=== PATIENT | male | born 1960 | race Caucasian/White ===

== ENCOUNTER 2017-10-02 19:45 | Inpatient (IN) | payer MEDICARE, MEDICAID ==
--- NOTE | 2017-10-02 20:24 | ED ---
Psych HPI - General Chief Complaint: Psychiatric Symptoms Stated Complaint: suicidal Time Seen by Provider: 10/02/17 19:49 Source: patient, police, RN notes reviewed Mode of arrival: ambulatory Limitations: no limitations - History of Present Illness Initial Comments: 57-year-old male presents emergency Department with [place] [employer] for psychiatric evaluation. Patient states he has ongoing psychiatric problems and states that it's not being treated right. Patient states that she is. Appointment with psychiatrist tomorrow. Patient does drink alcohol on a regular basis denies any illicit drug use. Patient states he was on the crisis hotline tonight and stated he was suicidal. Patient states he does not want talked her he was here does not want to give any further information. - Related Data Home Medications Medication Instructions Recorded Confirmed No Known Home Medications [No 10/02/17 10/02/17 Known Home Medications] Allergies Allergy/AdvReac Type Severity Reaction Status Date / Time No Known Allergies Allergy Verified 10/02/17 20:33 Review of Systems ROS Statement: Those systems with pertinent positive or pertinent negative responses have been documented in the HPI. ROS Other: All systems not noted in ROS Statement are negative. 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 hIV, Acute arterial thrombosis requiring thrombectomy History of Any Multi-Drug Resistant Organisms: None Reported Past Surgical History: Hernia Repair Additional Past Surgical History / Comment(s): RT INGUINAL HERNIA, UMBILICAL HERNIA FEM POP BYPASS Past Anesthesia/Blood Transfusion Reactions: Blood Transfusion Reaction Additional Past Anesthesia/Blood Transfusion Reaction / Comment(s): PT CONTRACTED HIV FROM BLOOD TRANSFUSION 1976 Past Psychological History: Anxiety, Depression, PTSD Smoking Status: Current every day smoker Past Alcohol Use History: Rare Past Drug Use History: Marijuana General Exam Limitations: no limitations General appearance: alert, in no apparent distress Head exam: Present: atraumatic, normocephalic, normal inspection Eye exam: Present: normal appearance, PERRL, EOMI. Absent: scleral icterus, conjunctival injection, periorbital swelling ENT exam: Present: mucous membranes moist, TM's normal bilaterally. Absent: normal oropharynx (Edentulous) Neck exam: Present: normal inspection, full ROM. Absent: tenderness, meningismus, lymphadenopathy Respiratory exam: Present: normal lung sounds bilaterally. Absent: respiratory distress, wheezes, rales, rhonchi, stridor Cardiovascular Exam: Present: regular rate, normal rhythm, normal heart sounds. Absent: systolic murmur, diastolic murmur, rubs, gallop, clicks Neurological exam: Present: alert, oriented X3, CN II-XII intact Psychiatric exam: Present: flat affect Skin exam: Present: warm, dry, intact, normal color. Absent: rash Course Vital Signs 10/02/17 19:51 Temperature 98.2 F Pulse Rate 74 Respiratory 18 Rate Blood Pressure 119/82 O2 Sat by Pulse 98 Oximetry Disposition Clinical Impression: Psychosis, Suicidal ideation, Depression Disposition: ADMITTED IP TO THIS HOSP Condition: Stable Referrals: Marvin Amaya MD [Primary Care Provider] - 1-2 days
[2017-10-02] MEDS ORDERED: LORazepam 1 MG TAB PO STA (23:11)
[2017-10-03 00:44] LABS: Amphetamine Screen,Urine Not Detected (NotDetected); Barbiturate Screen,Urine Not Detected (NotDetected); Benzodiazepines Screen,Urine Not Detected (NotDetected); Cocaine Screen,Urine Not Detected (NotDetected); Methadone Screen, Urine Not Detected (NotDetected); Opiate Screen,Urine Not Detected (NotDetected); Oxycodone Screen, Urine Not Detected (NotDetected); Phencyclidine Screen,Urine Not Detected (NotDetected); Tricyclic Antidepressant,Urine Not Detected (NotDetected); Urn Cannabinoid Scrn Detected (NotDetected)
[2017-10-03] MEDS ORDERED: ACETAMINOPHEN TAB 325 MG TAB PO PRN (02:11)
[2017-10-03] MEDS ORDERED: LORazepam 1 MG TAB PO PRN (02:11)
[2017-10-03] MEDS ORDERED: ZIPRASIDONE 20 MG VIAL IM PRN (02:11)
[2017-10-03] MEDS ORDERED: MAG HYDROX/AL HYDROX/SIMETH 30 ML CUP PO PRN (02:11)
[2017-10-03] MEDS ORDERED: OLANZapine 10 MG TAB PO PRN (02:36)
[2017-10-03 03:14] VITALS: BMI 19.4
[2017-10-03] MEDS: NICOTINE 14MG/24HR PATCH TRANSDERM SCH ×2 (09:54→16:27)
--- NOTE | 2017-10-03 15:05 | P.HP ---
Psychiatric H&P - . History & Physical: Allergies Allergy/AdvReac Type Severity Reaction Status Date / Time No Known Allergies Allergy Verified 10/03/17 02:59 Vital Signs Temp 97.8 F 10/03/17 03:06 Pulse 93 10/03/17 03:06 Resp 16 10/03/17 03:06 BP 119/82 10/02/17 19:51 Pulse Ox 98 10/02/17 19:51 Intake & Output 10/02/17 10/03/17 10/03/17 18:59 06:59 18:59 Weight 61.5 kg 61.5 kg Laboratory Last Values Urine Opiates Screen Not Detected (NotDetected) 10/03/17 00:20 Ur Oxycodone Screen Not Detected (NotDetected) 10/03/17 00:20 Urine Methadone Screen Not Detected (NotDetected) 10/03/17 00:20 Ur Propoxyphene Screen Not Detected (NotDetected) 10/03/17 00:20 Ur Barbiturates Screen Not Detected (NotDetected) 10/03/17 00:20 U Tricyclic Antidepress Not Detected (NotDetected) 10/03/17 00:20 Ur Phencyclidine Scrn Not Detected (NotDetected) 10/03/17 00:20 Ur Amphetamines Screen Not Detected (NotDetected) 10/03/17 00:20 U Methamphetamines Scrn Not Detected (NotDetected) 10/03/17 00:20 U Benzodiazepines Scrn Not Detected (NotDetected) 10/03/17 00:20 Urine Cocaine Screen Not Detected (NotDetected) 10/03/17 00:20 U Marijuana (THC) Screen Detected (NotDetected) H 10/03/17 00:20 Identifying Information: Mr.Ronald Oshea is 57 year-old unemployed, male, lives by himself with a service animal "cat", with past psychiatric history of PTSD and severe depression. CC: "I don't know why I am here" History of Present Illness: The patient was not very good historian, and he answered many questions by "I don't remember "and he claimed that he had very poor memory due to prior strokes. According to the ED evaluation: "57-year-old male presents emergency Department with [place] police for psychiatric evaluation. Patient states he has ongoing psychiatric problems and states that it's not being treated right. Patient states that he as an anointment with psychiatrist tomorrow. Patient does drink alcohol on a regular basis denies any illicit drug use. Patient states he was on the crisis hotline tonight and stated he was suicidal. Patient states he does not want talked her he was here does not want to give any further information. " Based on evaluation today: The patient presented with some paranoid features and paranoid though. He was very frustrated and angry at the medical care under services he receives. He reported that he called the crisis center to get some help and support with his medical needs and transportation for medical appointment and he found nobody cares and nobody listened to his requests. The patient generally was very limited in information he give it to me and he was paranoid about giving me more information that "would get me at more troubles "the patient reported that he has been diagnosed with AIDS and he claimed that the services give that to him when the use his body as an experiment. The patient was clinically preoccupied with his medical condition and to get back on his HIV medications. Patient was hyper verbal with pressured speech, racing thoughts and at sometimes circumstantial. Patient denies being suicidal and he denies has told the crisis center that his suicidal "I am in pain all the time, but not suicidal." Patient admitted for feeling depressed and reported has history of prior diagnosis of depression and PTSD but was not taking any psychiatric medication besides Seroquel prescribed by his primary care. The patient stated that he didn't receive any psychiatric services as outpatient because nobody cares about his mental illness. Patient initially was fixated on discharge today and threatened to refuse to eat or taking any medication until he get discharged but later he agreed to stay in treatment for his depression and to stabilize him on medication. He is willing to receive medication to help with his mood and depression. Patient reported symptoms of depression including depressed mood, feeling worthless, or helpless. Patient reports sleep, appetite, or concentration disturbances. Patient reported no suicidal thought, plans or intentions. Patient reports very high anxiety and racing thought, but he denies compulsions , obsessions. He reported prior diagnosis of PTSD but he couldn't give more details about his PTSD symptoms. Patient denied any current or prior episodes of manic symptoms, including episodes of: erratic uninhibited behavior, feeling grandiose or inflated self- esteem, but he presented today with flight of ideas, racing thoughts, irritable mood, hyper verbal, pressures and circumstantial. Patient denies any auditory/ visual / olfactory hallucinations. No bizarre disorganized behavior noticed, and no delusions could be elicited. He reported sometimes feels very paranoid around people. Past Psychiatric History: Patient refused to give any information and all information obtained from prior psychiatric evaluation in 2013 Hospitalizations: The patient has at least 4-5 admissions. Medications Trials: No information available about prior medication trials but he was discharged in 2013 on Seroquel and Effexor Prior Psychiatrist: According to the record of the [facility] Prior Suicidal attempts/ Thoughts: Patient refused to give information and no information available Substance use history: The patient reports reported that he quitted crack cocaine for 6-8 years. Probably smokes one PPD for past 30 years. Family history: "I don't have any family I associate with them for years so I can't answer this question" Social History: "I don't want to talk to you because anything I will tell you could be used against me" Probably lives by himself and the surface cat, unemployed, unknown highest level of education and no reported recreational activities or worship or spiritual orientation. It is unknown if he has any legal history and he didn't give information about his prior trauma but he reported has history of PTSD. Past medical history: HIV, AIDS Multiple strokes has been reported by the patient COPD, GERD, DVT Allergies: As Above Mental status examination: Appearance: The patient appears older than stated age, thin, disheveled with poor hygiene, no specific features. Gait/posture: Normal gait, Normal arm was swinging: No abnormal movements. Attitude and behavior: Not fully engaged, superficially cooperative, staring eye contact. Motor activity: Agitated Speech: Loud hyper verbal and pressured Mood: Irritable and agitated Affect: Expansive Thought form: Thought blocking but at times flight of ideas and circumstantial. Thought content: Paranoid, denies suicidal thoughts, denies homicidal thoughts, denies intentions or plans. Perception: Denies any auditory or visual hallucinations Attention: No impairment. Patient was able to repeat serial 5. Orientation: Patient patient was fully oriented to time place person and situation. Insight: Patient has limited insight about his psychiatric disorder. Judgment: Patient has limited judgment about his psychiatric treatment. History of Violence to self/others: Patient denies any history of violence or aggression toward self or others in the past 6 months. Patient strengths: Housing. SSD. Patient weaknesses: Poor coping skills. Limited social support. Poor compliance with treatment Formulation: The patient is 57 year-old male who presented to the ER after he called the crisis center and reported some suicidal thoughts. The patient has very poor social support and suffers from chronic pain and multiple medical co- morbidities. He denies current suicidal thoughts but he admitted for symptoms of depression and severe irritability and agitation. The patient is very angry at the poor medical care he receives. Patient presented with symptoms of hypo- manic episode. His drug screen was positive for marijuana but he didn't give much information about his drug history. Also the patient reported history of PTSD which probably related to his service at the . Assessment: Unspecified mood disorder Rule out bipolar 2 disorder Rule out major depressive disorder recurrent severe with psychotic features PTSD as per patient report Cannabis use disorder HIV- AIDS Chronic pain Treatment/ plan: Patient has been admitted to inpatient psychiatric level of care. Initially admitted involuntary then was switched to voluntary Check: as per unit routine Diet: Regular Lab ordered on admission: As per the medical team recommendations UDS on admission- ordered and results reviewed PSYCHIATRIC MEDICATIONS Seroquel 100 mg at bedtime for mood stabilization and for psychotic symptoms Effexor 37.5 mg by mouth daily for depression PRN medications Non-psychiatric medications: as per the medical team recommendation and a review of HIV medications. Psycho-education about: Nature of psychiatric illnesses Adherence to treatment Participation in groups/ individual therapy, and other activities []Pt has been educated and counseled about tobacco use and will continue MET to encourage patient quitting Consent obtained to start new medication 10/03/17 14:34
[2017-10-03] MEDS ORDERED: HYDROcodone/APAP 5-325MG 1 EACH TAB PO SCH (16:00)
[2017-10-03] MEDS: STRIBILD PO SCH (16:16)
[2017-10-03] MEDS: VENLAFAXINE HCL ER 37.5 MG CAP PO SCH (16:17)
[2017-10-03] MEDS: DRONABINOL 2.5 MG CAP PO SCH (17:33)
[2017-10-03] MEDS: QUEtiapine 100 MG TAB PO SCH (20:25)
[2017-10-04] MEDS: NICOTINE 14MG/24HR PATCH TRANSDERM SCH (07:59)
[2017-10-04] MEDS: DRONABINOL 2.5 MG CAP PO SCH ×2 (07:59→16:51)
[2017-10-04] MEDS: VENLAFAXINE HCL ER 37.5 MG CAP PO SCH (07:59)
[2017-10-04] MEDS: STRIBILD PO SCH (08:00)
[2017-10-04] MEDS: HYDROcodone/APAP 5-325MG 1 EACH TAB PO PRN ×2 (08:01→16:20)
[2017-10-04 09:10] LABS: ALT 30 U/L (21-72); AST 25 U/L (17-59); Albumin 4.8 g/dL (3.5-5.0); Alkaline Phosphatase 53 U/L (38-126); Anion Gap 11 mmol/L; Basophils # (A) 0.1 k/uL (0-0.2); Basophils % (A) 1 %; Blood Urea Nitrogen 28 mg/dL (9-20); Calcium 10.4 mg/dL (8.4-10.2); Carbon Dioxide 29 mmol/L (22-30); Chloride 102 mmol/L (98-107); Eosinophils # (A) 0.3 k/uL (0-0.7); Eosinophils % (A) 4 %; Glucose 100 mg/dL (74-99); HCT 48.6 % (39.0-53.0); HGB 15.6 gm/dL (13.0-17.5); Lymphocytes # (A) 3.4 k/uL (1.0-4.8); Lymphocytes % (A) 39 %; MCHC 32.1 g/dL (31.0-37.0); MCV 99.6 fL (80.0-100.0); Mean Platelet Volume 7.9; Monocytes # (A) 0.7 k/uL (0-1.0); Monocytes % (A) 8 %; Neutrophils % (A) 46 %; Platelet Count 281 k/uL (150-450); Potassium 4.4 mmol/L (3.5-5.1); RBC 4.88 m/uL (4.30-5.90); RDW 13.8 % (11.5-15.5); Sodium 142 mmol/L (137-145); Total Bilirubin 0.9 mg/dL (0.2-1.3); Total Protein 7.7 g/dL (6.3-8.2); WBC 8.6 k/uL (3.8-10.6)
--- NOTE | 2017-10-04 15:39 | P.PN ---
Progress Note - Text interval history: The patient is found the hallway he follows me to an interview room. The patient was recently admitted as he called the crisis line reporting suicidal ideation. The psychiatric evaluation note was reviewed he was found to be paranoid at times and mildly agitated. The patient tells me today he will not attend groups because he does not need to hear about other people's problems this will exacerbate his PTSD. He has been prescribed Effexor XR and Seroquel. He reports compliance with these medications. He is asking to be discharged as soon as possible. Vital signs reviewed. Mental status exam: The patient is a disheveled male hygiene is fair. He has a jose and long hair. He is mobile with a wheelchair. He is endorsing a frustrated and angry mood. He is endorsing no suicidal ideation intent or plan as he is trying to facilitate a discharge. He conveys some feelings of suspiciousness that we are holding him inappropriately and he doesn' t understand how we can make clinical decisions without knowing him longer. Insight and judgment limited. He demonstrates a mildly agitated affect he is directable. He is verbose and we'll continue speaking if not interrupted. Plan: The patient will be continued as current medications we will likely need titration of the Seroquel further. We will monitor him for safety and encourage his participation in the milieu. I tried to review the need for his continued hospitalization for further observation of acute safety concerns
[2017-10-04] MEDS: TAMSULOSIN 0.4 MG CAP.ER.24H PO SCH (16:49)
[2017-10-04] MEDS: QUEtiapine 100 MG TAB PO SCH (20:47)
[2017-10-05] MEDS: HYDROcodone/APAP 5-325MG 1 EACH TAB PO PRN ×3 (03:09→17:16)
[2017-10-05] MEDS: TAMSULOSIN 0.4 MG CAP.ER.24H PO SCH (09:02)
[2017-10-05] MEDS: STRIBILD PO SCH (09:02)
[2017-10-05] MEDS: DRONABINOL 2.5 MG CAP PO SCH ×2 (09:02→17:16)
[2017-10-05] MEDS: NICOTINE 14MG/24HR PATCH TRANSDERM SCH (09:02)
[2017-10-05] MEDS: VENLAFAXINE HCL ER 37.5 MG CAP PO SCH (09:37)
--- NOTE | 2017-10-05 11:15 | CONS ---
CONSULTATION DATE OF SERVICE: 10/05/2017. CHIEF COMPLAINT: White male, complaining about not getting home medications. He is in the psychiatric [facility] for medical management consult. Denied having any chest pain or shortness of breath. He had a history of prior strokes. He was admitted because he was suicidal apparently. Psychiatry is reviewing this. He has racing thoughts. PAST MEDICAL HISTORY: He has history of depression, PTSD. He says nobody cares about his mental illness, that is why he has never seen a psychiatrist in the past. He has a history of 2013 being on Seroquel and Effexor. He has had multiple strokes, COPD, GERD, DVT, and possible HIV and AIDS. He sees Dr. Thurman, apparently he has a history of AIDS and HIV. He has a history of crack cocaine 6 to 8 years ago. He smokes 1 pack a day for 30 years. Home medications reviewed. Psychiatric medicines reviewed including HIV medicines were reordered. PHYSICAL EXAMINATION: Cardiovascular S1-S2. Lungs are clear. GI is soft. Hematology negative Homans. Psych fair mood and affect. Very anxious and gives appropriate answers, but talks about many subjects quickly. He appears to be quite appropriate with his talk though, at this time. ASSESSMENT: 1. Human immunodeficiency virus. 2. Nicotine addiction. 3. Chronic obstructive pulmonary disease. 4. Prior strokes. 5. Prior bipolar history. 6. Marijuana use. 7. HIV/AIDS. 8. Chronic pain syndrome. PLAN: He recently cut back on his [place] from 240 a day down to 90 a day due to people thinking he is hooked on narcotics, which he denies being hooked on narcotics. Please see further orders in the chart. Home medications were reviewed. MMODL / IJN: [id number] /
--- NOTE | 2017-10-05 15:42 | P.PN ---
Progress Note - Text Interval history: The patient is found ambulating in the hallway he follows me to an interview room. He presents a packet of paper and states that since we have found him incompetent house he supposed to know what to do. We discussed that nobody has determined he is incompetent but we do need to evaluate him and provide treatment. I attempted to discuss the Effexor XR and Seroquel with him. He indicates he's not sleeping well. He feels persecuted that he was brought in by the police for no apparent reason and is being held against his will. Mental status exam: The patient is a thin male he has long hair a disheveled appearance he is dressed in his own clothing. He is more agitated today. He is ambulating versus using the wheelchair like yesterday. He is verbose he's pressured at times he is difficult to interrupt and session. Thought process can be tangential. He lacks insight into his presenting symptoms and need for treatment. He is reporting no suicidal or homicidal ideation intent or plan. He demonstrates a paranoid thought content. He is not physically aggressive during the session he demonstrates no abnormal involuntary movements. Plan: The patient will continue on his current psychotropic medications we will considered discontinuing the Effexor XR if it seems to be provoking manic symptoms. I will increase his Seroquel to 200 mg at bedtime to assist with sleep and further stabilize mood symptoms as well as address paranoid thinking. Vital signs reviewed. We will monitor him for safety.
[2017-10-05] MEDS ORDERED: QUEtiapine 200 MG TAB PO SCH (21:00)
[2017-10-05 22:36] LABS: Glucose,Whole Blood 116 mg/dL (75-99)
[2017-10-06] MEDS: HYDROcodone/APAP 5-325MG 1 EACH TAB PO PRN ×2 (07:00→17:13)
[2017-10-06] MEDS: DRONABINOL 2.5 MG CAP PO SCH ×2 (10:36→17:13)
[2017-10-06] MEDS: NICOTINE 14MG/24HR PATCH TRANSDERM SCH (10:37)
[2017-10-06] MEDS: TAMSULOSIN 0.4 MG CAP.ER.24H PO SCH (10:38)
[2017-10-06] MEDS: VENLAFAXINE HCL ER 37.5 MG CAP PO SCH (10:39)
[2017-10-06] MEDS: STRIBILD PO SCH (10:39)
[2017-10-06] MEDS: MAGNESIUM HYDROXIDE 2,400 MG/10 ML CUP PO PRN (13:51)
[2017-10-06] MEDS: QUEtiapine 100 MG TAB PO SCH (22:19)
--- NOTE | 2017-10-07 06:04 | PN ---
PROGRESS NOTE DATE OF SERVICE: 10/06/2017 CHIEF COMPLAINT: The patient was admitted due to confusion, disorganized thoughts, paranoid thinking. He was hyperverbal with pressured speech and racing thoughts. INTERVAL HISTORY: Patient has been doing fair. He said he was restless last night. Staff had observed him for sleeping about 3 hours up to 5 in the morning. He has been up and about. He will isolate himself. He does come out in the day area. He will interact just a little with others. He does not attend groups. He can get quite intense. He has had some periods where he will be hyperverbal and not make much sense in things that he is saying. He can be disorganized in thoughts. There was an incident last evening where he had a fall and then said that he thought he had another stroke, though there was not much documentation to support that. He did request getting put on Seroquel so noted that there was an apparent plan to start Seroquel though it was not initiated. He has been taking his medications. MENTAL STATUS: Patient gave fair eye contact. He was restless. He tended to ramble at times. He would get tangential. It was not always easy to follow his train of thought. His main concern was wanting to be discharged as soon as possible. He does not believe that he needs to be in the hospital. His affect was intense. His mood dysphoric. He seemed moderately distressed. ASSESSMENT: I will continue the current diagnosis and treatment plan. I will continue his Effexor XR 75 mg a day. I will review with the patient issues related to Seroquel. Apparently, he had been prescribed Seroquel at one point, though had not filled prescriptions for it of late. It had been indicated as something to be started. We will review it with the patient along with discharge planning issues. MMODL / IJN: [id number] /
[2017-10-07] MEDS: DRONABINOL 2.5 MG CAP PO SCH ×2 (06:47→17:31)
[2017-10-07] MEDS: HYDROcodone/APAP 5-325MG 1 EACH TAB PO PRN ×2 (06:47→14:40)
[2017-10-07] MEDS: STRIBILD PO SCH (09:19)
[2017-10-07] MEDS: VENLAFAXINE HCL ER 75 MG CAP PO SCH (09:20)
[2017-10-07] MEDS: NICOTINE 14MG/24HR PATCH TRANSDERM SCH (09:20)
[2017-10-07] MEDS: TAMSULOSIN 0.4 MG CAP.ER.24H PO SCH (09:20)
[2017-10-07 17:34] VITALS: PULSE 84; TEMP 98.4
[2017-10-07] MEDS: QUEtiapine 100 MG TAB PO SCH (20:32)
[2017-10-08] MEDS: HYDROcodone/APAP 5-325MG 1 EACH TAB PO PRN ×2 (01:41→09:26)
[2017-10-08 06:21] VITALS: BP 117/61; RESP 14
[2017-10-08] MEDS: NICOTINE 14MG/24HR PATCH TRANSDERM SCH (09:23)
[2017-10-08] MEDS: DRONABINOL 2.5 MG CAP PO SCH (09:24)
[2017-10-08] MEDS: TAMSULOSIN 0.4 MG CAP.ER.24H PO SCH (09:24)
[2017-10-08] MEDS: VENLAFAXINE HCL ER 75 MG CAP PO SCH (09:24)
[2017-10-08] MEDS: STRIBILD PO SCH (09:25)
[2017-10-08] MEDS: MAGNESIUM HYDROXIDE 2,400 MG/10 ML CUP PO PRN (09:28)
--- NOTE | 2017-10-08 10:15 | PN ---
PROGRESS NOTE DATE OF SERVICE: 10/07/2017. CHIEF COMPLAINT: The patient was admitted due to confusion, disorganized thoughts, paranoid thinking. He was hyperverbal with pressured speech and racing thoughts. INTERVAL HISTORY: Patient has been doing fairly well. He had a quiet evening last night. He slept fair. Today he has been up and about. He seems a little calmer overall. He was able to talk about discharge planning issues and was more comfortable in the idea that things needed to be worked out in order for him to have a successful followup plan. The patient's mood seems to be improving. He tends to keep to himself. He will come out in the day area. He will interact some with others. He says that he is not inclined to get involved in group therapy. He has a better outlook. He was able to talk about the possibilities of how his home situation could be made a little more functional for him given some of his physical limitations. He has not had change in his general health. He tolerates his psychotropic medications. MENTAL STATUS: Patient gave fair eye contact. Psychomotor activity was a little slow. Speech was monotone. He answered questions with brief responses. His thoughts were clear. His affect was a little blunted. His mood was quiet. He did not appear to be distressed. ASSESSMENT: I will continue the current diagnosis and treatment plan. I will continue psychotropic medications the same. The patient has been making progress. We will coordinate with outpatient resources and look for a discharge in the next 1-2 days. BOBBY / GUY: [id number] /
--- NOTE | 2017-10-08 11:00 | DS ---
DISCHARGE SUMMARY DATE OF SERVICE: 10/08/2017 DATE OF ADMISSION: 10/03/2017 DATE OF DISCHARGE: 10/08/2017 ADMISSION AND DISCHARGE DIAGNOSES: 1. Mood disorder with psychotic features. Rule out bipolar II disorder. 2. Posttraumatic stress disorder as per patient report. 3. Cannabis use disorder. 4. HIV, AIDS. 5. Chronic pain. HISTORY OF PRESENTING ILLNESS: The patient was admitted due to increasing problems with confusion, disorganized thoughts, and paranoid thinking. He was hyperverbal with pressured speech and racing thoughts. The patient apparently presented to the emergency department after having called the crisis center. He was angry and frustrated, believing that he was not getting services that he needed. He had paranoid thinking and was not able to identify specific things going on in his current situation, partly because he acknowledged that he did not trust others. He tended to be disorganized in his thoughts when he was interviewed. He was noted to be hyperverbal with pressured speech. He had racing thoughts. He was circumstantial. He did not indicate any thoughts of suicide. He acknowledged depressed mood and said he had a history of PTSD. He has been prescribed Seroquel by his primary care physician, but indicated that he was not taking the medication. He was not able to identify precipitants to his current difficulties. He made comments about threatening to refuse to eat or take any medications if he was sent home and his problems were not taking care of. He was admitted for further evaluation. PAST MEDICAL HISTORY AND PHYSICAL EXAM: As per medical consultation of Dr. Amaya. MENTAL STATUS EXAM: The patient appeared disheveled with poor hygiene. He had no abnormal movements. He had a staring gaze. He was agitated. He was hyperverbal with pressured speech. He had a irritable, agitated mood. At times, there were thought blocking. He had paranoid thoughts. There was no outward sign of auditory or visual hallucinations. He was oriented and alert. COURSE OF HOSPITALIZATION: Patient was admitted for comprehensive medical psychiatric and psychosocial evaluation. We engaged the patient in individual and group therapeutic activities. He was continued on Effexor, which he had previously been prescribed, though had not been taking. He was started on a lower dose than the 150 mg that he had previously been prescribed. He was also continued on Seroquel 100 mg a day. In the early part of his hospitalization, the patient was quite distressed. He would have periods where he would get angry at staff. He demanded to leave. He did express some paranoid thoughts, feeling that people were holding him against his will and trying to do bad things to him. Through the course of his hospital stay, he was able to establish a fairly good sleep pattern. He preferred not to attend any group activities. He would spend some time in his room. Sometimes he would nap in the day. He would come out in the day area. He would interact with others. He did not engage much in personal activities. As the hospitalization progressed, his mood improved. He became more interactive and was able to engage well with staff in terms of discharge planning. We discussed his pain issues. He noted that he had been taking a significantly higher dose of Clinton though had worked with Dr. Amaya to reduce his Clinton use down to 3 tablets a day. He was willing to talk further with Dr. Amaya about a plan towards possibly getting off of opioid pain medications altogether. We did discuss alternative means of managing pain. We discussed that if he does taper off Clinton, he may have withdrawal and it may take 6 to 8 weeks before he sees clear improvement, though he is likely to have less pain off narcotics then when on. We discussed alternatives such as assertive use of anti-inflammatory medications, a movement program where he could do some walking or use an exercise bike to help improve body mechanics and improve his overall physical function. It was noted that he lives on a second floor apartment and sometimes has struggles with walking which could make it difficult for him to get up and down stairs. He was willing to have an occupational therapy evaluation at home to see how his home situation could be improved. He was accepting of the idea that he needed to get out in the community and have more social connections. He talked about volunteer work and wanted to find some opportunities for service in that direction. He was active in working on discharge planning. CONDITION AT DISCHARGE: Patient was stable. His mood was improved. He had significant reduction in paranoid thinking. His thoughts were clear. There was no indication of psychotic symptoms. RECOMMENDATIONS AND FOLLOWUP: The patient is discharged to home. Discharge medications include; 1. Effexor 75 mg a day. 2. Seroquel 100 mg at bedtime. 3. Flomax 0.4 mg daily. 4. Clinton 5 mg one 3 times a day as needed. 5. Marinol. Patient will be referred back to Dr. Amaya. There should be consideration for looking to alternatives for pain management. We will aim to set up an occupational therapy evaluation. MMODL / IJN: [id number] /
== END 2017-10-08 14:29 | disposition home or self-care (01) | DRG 885 ==
LOC: EC 19:45 → 3MHU 10-03 00:09
PROVIDERS: ADMIT Psychiatry & Neurology Psychiatry; ATTEND Psychiatry & Neurology Psychiatry
DX: F32.3 Major depressive disorder, single episode, severe with psychotic features (principal); B20 Human immunodeficiency virus [HIV] disease; R45.851 Suicidal ideations; F12.90 Cannabis use, unspecified, uncomplicated; F17.200 Nicotine dependence, unspecified, uncomplicated; F29 Unspecified psychosis not due to a substance or known physiological condition; F43.10 Post-traumatic stress disorder, unspecified; G89.4 Chronic pain syndrome; J44.9 Chronic obstructive pulmonary disease, unspecified; K21.9 Gastro-esophageal reflux disease without esophagitis; M10.9 Gout, unspecified; Z79.899 Other long term (current) drug therapy; Z86.73 Personal history of transient ischemic attack (TIA), and cerebral infarction without residual deficits; Z79.891 Long term (current) use of opiate analgesic
CPT/HCPCS: 80053; 80306; 82075; 84443; 85025; 99284

== ENCOUNTER 2018-02-24 11:15 | Inpatient (IN) | payer MEDICARE, MEDICAID ==
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
[2018-02-24 13:05] LABS: Amphetamine Screen,Urine Not Detected (NotDetected); Barbiturate Screen,Urine Not Detected (NotDetected); Benzodiazepines Screen,Urine Not Detected (NotDetected); Cocaine Screen,Urine Not Detected (NotDetected); Methadone Screen, Urine Not Detected (NotDetected); Opiate Screen,Urine Not Detected (NotDetected); Oxycodone Screen, Urine Not Detected (NotDetected); Phencyclidine Screen,Urine Not Detected (NotDetected); Tricyclic Antidepressant,Urine Not Detected (NotDetected); Urn Cannabinoid Scrn Detected (NotDetected)
[2018-02-24] MEDS ORDERED: ACETAMINOPHEN TAB 325 MG TAB PO PRN (14:07)
[2018-02-24] MEDS ORDERED: MAGNESIUM HYDROXIDE 2,400 MG/10 ML CUP PO PRN (14:07)
[2018-02-24] MEDS ORDERED: ONDANSETRON 4 MG TAB PO PRN (14:10)
[2018-02-24] MEDS ORDERED: ALBUTEROL INHALER 60 PUFF/8 GM INHALER INHALATION PRN (14:10)
[2018-02-24] MEDS: NICOTINE 21MG/24HR PATCH TRANSDERM SCH (15:49)
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
[2018-02-24 17:01] VITALS: BMI 20.7
[2018-02-24] MEDS ORDERED: DRONABINOL 2.5 MG CAP PO SCH (17:30)
[2018-02-24] MEDS ORDERED: ONDANSETRON ODT 4 MG TAB PO PRN (18:02)
[2018-02-24] MEDS ORDERED: IBUPROFEN 400 MG TAB PO PRN (18:28)
[2018-02-24] MEDS ORDERED: TAMSULOSIN 0.4 MG CAP.ER.24H PO SCH (18:30)
--- NOTE | 2018-02-24 18:46 | P.HPIM ---
History of Present Illness H&P Date: 02/24/18 Chief Complaint: Depression Patient is a 57-year-old male with a past medical history of HIV, COPD , multiple strokes, and CVA. He initially presented to the ER report here on secondary depression and having suicidal thoughts. He has subsequently been admitted to the mental health unit we have asked that consulted for management of his chronic medical conditions including HIV. Patient seen and examined. He is very difficult to ascertain a history from if he has a tangential thought process and jumps from one topic to another. He focuses on his chronic pain and difficulty dealing with doctors and getting breathing prescriptions. He is able to tell me that he's had HIV since 1998 and currently follows the clinic through [facility]. He also struggles with nausea on a daily basis and has been taking Marinol for this and smoking marijuana. He also complains of recent weight loss and that his insurance will not pay for ensure. He denies any diarrhea or constipation. He is not having any dysuria. He has for his thyroid to be checked. He has chronic pain but no shortness of breath. With other questioning he loses his train of thought and does not answer my questions has therefore not able to obtain a full review of systems. He does state that his HIV is well controlled. He then tells me that HIV is not up blood or sexually transmitted disease. He then goes to talk about how [employer] will not give us to care for high blood pressure, cancer, or diabetes been eating too much money off of these. He then starts quoting multiple studies from doctors that he says he is learned from the knees are the curative things that he cannot quantify further. He also is aware he is behind on his regular scheduled health maintenance exams including a colonoscopy. Yesterday's to be done will he is here and I have informed him that these will need to be completed through his PCP. He then tells me he sees Dr. Tomlinson out of the [place] [facility], but then says that is not his primary doctor, and he doesn't see Dr. Valderrama as His Primary Doctor They Can No Longer See Him. It Is Unclear Whether He Has a Primary Care Physician or Not. Review of Systems Hospitalist: + Chronic pain, + Nausea, + insomnia Pertinent positives and negatives as discussed in HPI, a complete review of systems was performed and all other systems are negative. 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, Scoliosis, HIV, Acute arterial thrombosis requiring thrombectomy History of Any Multi-Drug Resistant Organisms: None Reported Past Surgical History: Hernia Repair Additional Past Surgical History / Comment(s): RT INGUINAL HERNIA, UMBILICAL HERNIA FEM POP BYPASS Past Anesthesia/Blood Transfusion Reactions: Blood Transfusion Reaction Additional Past Anesthesia/Blood Transfusion Reaction / Comment(s): PT CONTRACTED HIV FROM BLOOD TRANSFUSION 1977 Past Psychological History: Anxiety, Depression, PTSD Smoking Status: Current every day smoker Past Alcohol Use History: Occasional Additional Past Alcohol Use History / Comment(s): Pt. states he drinks 3-4 16 oz. beers twice a month Past Drug Use History: Marijuana, Opiates Additional History: Lives alone - Past Family History none Family Medical History: No Reported History Additional Family Medical History / Comment(s): Patient reports he does not speak to his family and doesn't know their history. Medications and Allergies Home Medications Medication Instructions Recorded Confirmed Type Albuterol Inhaler [Ventolin Hfa 2 puff INHALATION RT-Q6H PRN 10/06/17 02/24/18 History Inhaler] Doxazosin [Cardura] 4 mg PO HS 10/06/17 02/24/18 History Elviteg/Yancy/Emtric/Tenofo Dis 1 tab PO DAILY 10/06/17 02/24/18 History [Stribild Tablet] Gabapentin 800 mg PO TID 10/06/17 02/24/18 History HYDROcodone/APAP 10-325MG [[place] 1 tab PO TID PRN 10/06/17 02/24/18 History 10-325] Lisinopril [Zestril] 2.5 mg PO DAILY 10/06/17 02/24/18 History Tiotropium 18 Mcg/Puff [Spiriva] 1 cap INHALATION RT-DAILY 10/06/17 02/24/18 History Dronabinol [Marinol] 2.5 mg PO AC-BID cap 10/08/17 02/24/18 Rx Lactose-Reduced Food [Ensure Plus] 1 can PO BID 02/24/18 02/24/18 History Ondansetron HCl [Zofran] 4 mg PO TID PRN 02/24/18 02/24/18 History Rosuvastatin [Crestor] 10 mg PO HS 02/24/18 02/24/18 History Sildenafil Citrate [Viagra] 100 mg PO ONCE PRN 02/24/18 02/24/18 History Allergies Allergy/AdvReac Type Severity Reaction Status Date / Time buprenorphine [From Suboxone] Allergy Unknown Verified 02/24/18 11:28 morphine Allergy Unknown Verified 02/24/18 11:28 naloxone [From Suboxone] Allergy Unknown Verified 02/24/18 11:28 Physical Exam Osteopathic Statement: *. No significant issues noted on an osteopathic structural exam other than those noted in the History and Physical/Consult. Vitals: Vital Signs Temp Pulse Pulse Resp BP BP Pulse Ox 02/24/18 16:31 97.2 F L 80 20 128/85 96 02/24/18 11:24 98.1 F 87 20 116/73 95 Intake and Output 02/24/18 02/24/18 02/24/18 06:59 14:59 22:59 Other: Weight 65.771 kg 65.459 kg General: non toxic, no distress, appears older than stated age, cachectic with temporal wasting Derm: no unusual rashes/lesions multiple areas of ecchymosis at different stages of healing, warm, dry Head: atraumatic, normocephalic, symmetric Eyes: EOMI, no lid lag, anicteric sclera, pupils equal round reactive to light ENT: Nose and ears atraumatic, no thrush, no pharyngeal erythema Neck: No thyromegaly, no cervical lymphadenopathy, trachea midline, supple Mouth: no lip lesion, mucus membranes moist Cardiovascular: S1S2 reg, no murmur, positive posterior tibial pulse bilateral, no edema, capillary refill less than 2 seconds Lungs: CTA bilateral, no rhonchi, no rales , no accessory muscle use Abdominal: soft, nontender to palpation, no guarding, no appreciable organomegaly, normal bowel sounds Ext: no gross muscle atrophy, muscle strength 5 out of 5 in upper extremities grossly, no contractures, antalgic gait, gross muscle strength intact in bilateral lower extremities Neuro: CN II-XI grossly intact, light touch intact all 4 extremities, finger to nose within normal limits, Psych: Alert, oriented, appropriate affect Results Labs: Abnormal Lab Results - Last 24 Hours (Table) 02/24/18 Range/Units 11:35 U Marijuana (THC) Screen Detected H (NotDetected) Thrombosis Risk Factor Assmnt - DVT/VTE Prophylaxis DVT/VTE Prophylaxis: Low risk, early ambulation encouraged - Choose All That Apply Any of the Below Risk Factors Present?: Yes Each Factor Represents 1 point: Abnormal pulmonary function (COPD), Age 41-60 years Other Risk Factors: Yes Each Risk Factor Represents 3 Points: History of DVT/PE Other congenital or acquired thrombophilia - If yes, enter type in comment: No Thrombosis Risk Factor Assessment Total Risk Factor Score: 5 Thrombosis Risk Factor Assessment Level: High Risk Assessment and Plan Assessment: Chronic pain -Tylenol and Motrin as needed for pain -Attempt to limit narcotics as per psychiatry request -Both myself in admission nurse had difficulty ascertaining if patient actually was taking gabapentin. In order to prevent withdrawal from gabapentin will initiate 300 mg 3 times a day and see how patient tolerates. HIV -Resume a home STRIBILD -Continue out patient follow-up with [facility] COPD without exacerbation -Resume home by Spiriva -When necessary albuterol Gait disturbance - PT evaluation - mortin and tylenol Adjustment disorder -Your psych management Chronic: GERD BPH Gout DVT Multiple CVAs History of arterial thrombosis Will check TSH, cholesterol profile, BMP, and CBC Thank you for allowing us to participate in the care of this patient. We will follow peripherally. Do not hesitate to contact us with questions. Someone can be reached from the [facility] hospitalist group at all hours of the day at [phone].
[2018-02-24] MEDS: GABAPENTIN 300 MG CAP PO SCH (20:20)
[2018-02-24] MEDS ORDERED: NON-FORMULARY DRUG (Lactose-Reduced Food [Ensure Plus] 1 CAN) PO SCH (21:00)
[2018-02-24] MEDS ORDERED: DOXAZOSIN 4 MG TAB PO SCH (21:00)
[2018-02-24] MEDS ORDERED: ATORVASTATIN 20 MG TAB PO SCH (21:00)
[2018-02-24] MEDS ORDERED: QUEtiapine 50 MG TAB PO SCH (21:00)
[2018-02-25 05:39] VITALS: BP 117/71; PULSE 87; RESP 16; TEMP 97.5
[2018-02-25] MEDS ORDERED: TIOTROPIUM 18 MCG/PUFF INHALER INHALATION SCH (08:00)
[2018-02-25] MEDS ORDERED: STRIBILD PO SCH (09:00)
[2018-02-25] MEDS ORDERED: LISINOPRIL 2.5 MG TAB PO SCH (09:00)
[2018-02-25] MEDS ORDERED: Elviteg/Cobi/Emtric/Tenofo Dis [Stribild Tablet] 1 TAB PO SCH (09:00)
[2018-02-25] MEDS: NICOTINE 21MG/24HR PATCH TRANSDERM SCH (09:20)
[2018-02-25] MEDS: GABAPENTIN 300 MG CAP PO SCH (09:20)
--- NOTE | 2018-02-25 11:07 | P.DS ---
Providers Date of admission: 02/24/18 13:56 Expected date of discharge: 02/25/18 Attending physician: Isma Ruelas Consults: 02/24/18 14:07 Consult Physician Routine Consulting Provider: Rodrigo Physician Consult Reason/Comments: H&P for mental health admission Do you want consulting provider notified?: Yes Primary care physician: [facility] Hospital Course: Patient had his psychiatric evaluation, physical examination and psychosocial evaluation. After psychiatric evaluation it was agreed for him to try Seroquel 50 mg at bedtime to help him with sleep and for "mood stabilization". Patient wanted to use wheelchair. But it was not authorized since I and the plant manager who examined him did not see any indication for wheelchair use. Patient also wanted to be on narcotics for reported chronic pain which was not approved. Patient reported to nursing staff that he came here to get some narcotics and if he cannot get it he did not see any purpose in staying here and as well could go home and to his daily activities. Vision has not been attending groups , stays in his room, gets irate, demanding, refuses to talk to staff members including me and all he is interested is in getting his narcotics. When he was informed about his discussion with the nursing staff about going home, he said he would like to go home and it was agreed to discharge him. Condition on discharge: This is a white ambulatory male with adequate hygiene. He is uncooperative and demanding to be prescribed narcotics. His speech is spontaneous and goal-directed. But his demands and stay totally are unreasonable. He continues to deny suicide and homicide thoughts. He does not have any evidence of psychosis. He is well oriented with adequate memory concentration general knowledge etc. His insight is adequate but judgment appears to be poor as evidenced by his inability behavior demanding narcotics and providing unreasonable history which defies logic. Diagnosis on discharge: Opioid use disorder severe F 11.20 Alcohol use disorder severe F 10.20. Cannabis use disorder severe F 12.20 Malingering to get narcotics F 76.5. ALLERGY to be up and often morphine and naloxone. Hypertension. Hyperlipidemia. COPD. History of HIV infection. History of peripheral neuropathy. Patient was advised to seek drug and alcohol counseling to learn better coping skills and continue his outpatient treatment at the OR. Patient Condition at Discharge: Stable Plan - Discharge Summary Discharge Rx Participant: No New Discharge Prescriptions: New Acetaminophen Tab [Tylenol] 650 mg PO Q4HR PRN tab PRN Reason: Pain/Discomfort Gabapentin [Neurontin] 300 mg PO TID cap Ibuprofen [Motrin] 400 mg PO Q6HR PRN tab PRN Reason: Pain Magnesium Hydroxide [Milk of Magnesia Concentrate] 2,400 mg PO DAILY PRN ml PRN Reason: Constipation Stribild 1 tab PO DAILY Tamsulosin [Flomax] 0.4 mg PO PC-SUPPER cap.er.24h Continue Tiotropium 18 Mcg/Puff [Spiriva] 1 cap INHALATION RT-DAILY Elviteg/Yancy/Emtric/Tenofo Dis [Stribild Tablet] 1 tab PO DAILY Albuterol Inhaler [Ventolin Hfa Inhaler] 2 puff INHALATION RT-Q6H PRN PRN Reason: Shortness Of Breath Lisinopril [Zestril] 2.5 mg PO DAILY Doxazosin [Cardura] 4 mg PO HS Sildenafil Citrate [Viagra] 100 mg PO ONCE PRN PRN Reason: SEXUAL INTERCOURSE Rosuvastatin [Crestor] 10 mg PO HS Discontinued HYDROcodone/APAP 10-325MG [[place] 10-325] 1 tab PO TID PRN PRN Reason: Pain Gabapentin 800 mg PO TID Dronabinol [Marinol] 2.5 mg PO AC-BID cap Ondansetron HCl [Zofran] 4 mg PO TID PRN PRN Reason: Nausea Lactose-Reduced Food [Ensure Plus] 1 can PO BID Discharge Medication List Albuterol Inhaler [Ventolin Hfa Inhaler] 2 puff INHALATION RT-Q6H PRN 10/06/17 [ History] Doxazosin [Cardura] 4 mg PO HS 10/06/17 [History] Elviteg/Yancy/Emtric/Tenofo Dis [Stribild Tablet] 1 tab PO DAILY 10/06/17 [ History] Lisinopril [Zestril] 2.5 mg PO DAILY 10/06/17 [History] Tiotropium 18 Mcg/Puff [Spiriva] 1 cap INHALATION RT-DAILY 10/06/17 [History] Rosuvastatin [Crestor] 10 mg PO HS 02/24/18 [History] Sildenafil Citrate [Viagra] 100 mg PO ONCE PRN 02/24/18 [History] Acetaminophen Tab [Tylenol] 650 mg PO Q4HR PRN tab 02/25/18 [Rx] Gabapentin [Neurontin] 300 mg PO TID cap 02/25/18 [Rx] Ibuprofen [Motrin] 400 mg PO Q6HR PRN tab 02/25/18 [Rx] Magnesium Hydroxide [Milk of Magnesia Concentrate] 2,400 mg PO DAILY PRN ml [Rx] Stribild 1 tab PO DAILY 02/25/18 [Rx] Tamsulosin [Flomax] 0.4 mg PO PC-SUPPER cap.er.24h 02/25/18 [Rx] Follow up Appointment(s)/Referral(s): [facility],Clinic [Primary Care Provider] - 1-2 days
== END 2018-02-25 12:50 | disposition home or self-care (01) | DRG 881 ==
LOC: EC 11:15 → SUPCPDRO 11:15 → 3MHU 13:56
PROVIDERS: ADMIT Psychiatry & Neurology Psychiatry; ATTEND Psychiatry & Neurology Psychiatry
DX: F32.9 Major depressive disorder, single episode, unspecified (principal); B20 Human immunodeficiency virus [HIV] disease; F11.20 Opioid dependence, uncomplicated; R45.851 Suicidal ideations; F43.10 Post-traumatic stress disorder, unspecified; F43.20 Adjustment disorder, unspecified; G89.29 Other chronic pain; I10 Essential (primary) hypertension; J44.9 Chronic obstructive pulmonary disease, unspecified; F17.200 Nicotine dependence, unspecified, uncomplicated; F12.20 Cannabis dependence, uncomplicated; F02.80 Dementia in other diseases classified elsewhere, unspecified severity, without behavioral disturbance, psychotic disturbance, mood disturbance, and anxiety; E78.5 Hyperlipidemia, unspecified; K21.9 Gastro-esophageal reflux disease without esophagitis; M10.9 Gout, unspecified; M41.9 Scoliosis, unspecified; N40.0 Benign prostatic hyperplasia without lower urinary tract symptoms; Z76.5 Malingerer [conscious simulation]; Z79.899 Other long term (current) drug therapy; Z86.73 Personal history of transient ischemic attack (TIA), and cerebral infarction without residual deficits; Z86.718 Personal history of other venous thrombosis and embolism; Z71.41 Alcohol abuse counseling and surveillance of alcoholic; Z71.51 Drug abuse counseling and surveillance of drug abuser; G47.00 Insomnia, unspecified; R11.0 Nausea; Z60.2 Problems related to living alone; Z87.01 Personal history of pneumonia (recurrent); G62.9 Polyneuropathy, unspecified; Z88.5 Allergy status to narcotic agent; Z88.8 Allergy status to other drugs, medicaments and biological substances
CPT/HCPCS: 80306; 82075; 99285

== ENCOUNTER 2018-03-31 13:47 | Emergency (ER) | payer MEDICARE, OTHER ==
[2018-03-31 15:07] LABS: Basophils % (A) 0 %; Eosinophils # (A) 0.3 k/uL (0-0.7); Eosinophils % (A) 2 %; HCT 39.8 % (39.0-53.0); HGB 13.6 gm/dL (13.0-17.5); Lymphocytes # (A) 2.7 k/uL (1.0-4.8); Lymphocytes % (A) 18 %; MCH 33.2 pg (25.0-35.0); MCHC 34.2 g/dL (31.0-37.0); MCV 97.1 fL (80.0-100.0); Mean Platelet Volume 7.6; Monocytes # (A) 0.9 k/uL (0-1.0); Monocytes % (A) 6 %; Neutrophils # (A) 10.8 k/uL (1.3-7.7); Neutrophils % (A) 73 %; Platelet Count 198 k/uL (150-450); RDW 13.2 % (11.5-15.5); WBC 14.8 k/uL (3.8-10.6)
[2018-03-31 15:08] LABS: Albumin 4.3 g/dL (3.5-5.0); Calcium 9.4 mg/dL (8.4-10.2); Potassium 4.3 mmol/L (3.5-5.1); Total Bilirubin 0.9 mg/dL (0.2-1.3)
[2018-03-31 15:10] LABS: Partial Thromboplastin Time 22.7 sec (22.0-30.0); Prothrombin Time 9.9 sec (9.0-12.0)
--- NOTE | 2018-03-31 15:39 | XR ---
EXAMINATION TYPE: XR chest 2V DATE OF EXAM: 03/31/2018 COMPARISON: 05/13/2014 TECHNIQUE: PA and lateral views submitted. HISTORY: Syncope FINDINGS: The lungs are clear and there is no pneumothorax, pleural effusion, or focal pneumonia. No overt fa ilure. Hypertrophic and degenerative changes of the spine. IMPRESSION: 1. No acute process.
--- NOTE | 2018-03-31 15:47 | CT ---
EXAMINATION TYPE: CT brain wo con DATE OF EXAM: 03/31/2018 COMPARISON: 07/25/2017 MRI brain, CT scan 07/25/2011 HISTORY: weakness, ams CT DLP: 1121 mGycm Automated exposure control for dose reduction was used. FINDINGS: There is a area of abnormal attenuation involving the left parietal white matter in the region of the centrum semiovale measuring 2.1 cm. There is some intermediate attenuation mixed with areas of low a ttenuation. Mild to moderate generalized degenerative change seen and there is periventricular low attenuation wh ich is nonspecific. Calvarium intact. No acute hemorrhage or mass effect or midline shift. IMPRESSION: THERE IS A AREA OF LOW ATTENUATION IN THE LEFT PARIETAL WHITE MATTERS WHICH WAS SEEN ON THE PREVIOUS MRI OF 07/25/2017. THIS IS MOST TYPICAL OF AN AREA OF REMOTE ISCHEMIA. HOWEVER, AREA OF ABNORMAL ATTE NUATION ALONG THE UPPER MARGIN OF THE LEFT PARIETAL LOBE COULD REPRESENT A RECENT AREA OF ISCHEMIA. C ORRELATE WITH MRI. NO ACUTE HEMORRHAGE.
--- NOTE | 2018-03-31 15:48 | XR ---
EXAMINATION TYPE: XR Hip LT and AP Pelvis DATE OF EXAM: 03/31/2018 COMPARISON: NONE HISTORY: Pain TECHNIQUE: A single AP view of the pelvis is obtained. Two views of the left hip are obtained. FINDINGS: Arthropathy of the hips seen bilaterally. Surgical clip along the inferior pubic ramus on t he left. No acute fracture. No dislocation. SI joints symmetric. IMPRESSION: 1. Bilateral hip arthropathy.
--- NOTE | 2018-04-10 07:11 | CDI ---
Documentation Clarification OP Dear Jay Oropeza, DO Please do addendum to ED report that provides Need Clinical Impression for visit. Thank you, Bill Negrete Securities Supervisor If you have any questions, please contact Link Trainer Mechanic at [phone] [facility]
== END 2018-03-31 16:20 | disposition left against medical advice (07) ==
LOC: EC 13:47
DX: R55 Syncope and collapse (principal); K92.1 Melena; F17.200 Nicotine dependence, unspecified, uncomplicated; Z21 Asymptomatic human immunodeficiency virus [HIV] infection status; Z86.73 Personal history of transient ischemic attack (TIA), and cerebral infarction without residual deficits; Z98.890 Other specified postprocedural states
CPT/HCPCS: 36415; 70450; 71046; 73502; 80053; 82272; 82550; 82553; 85025; 85610; 85730; 86850; 86900; 86901; 93005; 99284

== ENCOUNTER 2018-06-21 23:21 | Emergency (ER) | payer MEDICARE, OTHER ==
[2018-06-21 23:37] VITALS: RESP 18; TEMP 98.3
--- NOTE | 2018-06-21 23:59 | ED ---
Psych HPI - General Source: patient, police, RN notes reviewed Mode of arrival: ambulatory - History of Present Illness MD Complaint: suicidal ideation, feels depressed, other <Troy Don - Last Filed: 06/21/18 23:49> <Davie Martin - Last Filed: 06/22/18 02:00> <Rios Mueller - Last Filed: 06/22/18 15:51> - General Chief Complaint: Psychiatric Symptoms Stated Complaint: Mental Health Time Seen by Provider: 06/21/18 23:38 - History of Present Illness Initial Comments: This is a 58-year-old male history depression and history of COPD who states he was taken of his pain medication March and started drinking. He drinks lately about a fifth a day of ROM. This is for his chronic pain from his peripheral vascular disease he states. He states he was on a hotline today with the [facility] in [place] police officer crime prevention showed up he did admit that he wanted take rat poison or Drano and kill himself. (Troy Don) - Related Data Home Medications Medication Instructions Recorded Confirmed Doxazosin [Cardura] 4 mg PO HS 10/06/17 06/22/18 Lisinopril [Zestril] 2.5 mg PO AC-BRKFST 10/06/17 06/22/18 Tiotropium 18 Mcg/Puff [Spiriva] 1 cap INHALATION RT-DAILY 10/06/17 06/22/18 Aspirin EC [Ecotrin Low Dose] 81 mg PO DAILY 03/31/18 06/22/18 Diclofenac Sodium 50 mg PO AC-BID 03/31/18 06/22/18 Elviteg/Cob/Emtri/Tenof Alafen 1 tab PO AC-BRKFST 03/31/18 06/22/18 [Genvoya Tablet] Elviteg/Yancy/Emtric/Tenofo Dis 1 tab PO DAILY 03/31/18 06/22/18 [Stribild Tablet] Gabapentin 600 mg PO TID 03/31/18 06/22/18 Memantine [Namenda] 10 mg PO BID 03/31/18 06/22/18 Naproxen 500 mg PO AC-BID 03/31/18 06/22/18 Ondansetron HCl [Zofran] 4 mg PO Q8H PRN 03/31/18 06/22/18 Tamsulosin [Flomax] 0.4 mg PO AC-BRKFST 03/31/18 06/22/18 tiZANidine [Zanaflex] 2 - 4 mg PO Q8HR PRN 03/31/18 06/22/18 Albuterol Sulfate [Proair Hfa] 1 - 2 puff INHALATION RT-Q6H PRN 06/22/18 Dronabinol 10 mg PO BID 06/22/18 06/22/18 Pravastatin Sodium [Pravachol] 10 mg PO HS 06/22/18 06/22/18 QUEtiapine [SEROquel] 100 mg PO HS 06/22/18 06/22/18 Raltegravir Potassium [Isentress] 400 mg PO Q12H 06/22/18 06/22/18 Allergies Allergy/AdvReac Type Severity Reaction Status Date / Time buprenorphine [From Suboxone] Allergy Unknown Verified 06/22/18 08:06 morphine Allergy Unknown Verified 06/22/18 08:06 naloxone [From Suboxone] Allergy Unknown Verified 06/22/18 08:06 Review of Systems ROS Other: All systems not noted in ROS Statement are negative. <Troy Don - Last Filed: 06/21/18 23:49> ROS Other: All systems not noted in ROS Statement are negative. <Davie Martin - Last Filed: 06/22/18 02:00> ROS Other: All systems not noted in ROS Statement are negative. <Rios Mueller - Last Filed: 06/22/18 15:51> ROS Statement: Those systems with pertinent positive or pertinent negative responses have been documented in the HPI. 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, Scoliosis, HIV, Acute arterial thrombosis requiring thrombectomy History of Any Multi-Drug Resistant Organisms: None Reported Past Surgical History: Hernia Repair Additional Past Surgical History / Comment(s): RT INGUINAL HERNIA, UMBILICAL HERNIA FEM POP BYPASS Past Anesthesia/Blood Transfusion Reactions: Blood Transfusion Reaction Additional Past Anesthesia/Blood Transfusion Reaction / Comment(s): PT CONTRACTED HIV FROM BLOOD TRANSFUSION 1976 Past Psychological History: Anxiety, Depression, PTSD Smoking Status: Current every day smoker Past Alcohol Use History: Daily Past Drug Use History: Marijuana, Opiates - Past Family History none Family Medical History: No Reported History Additional Family Medical History / Comment(s): Patient reports he does not speak to his family and doesn't know their history. <Troy Don - Last Filed: 06/21/18 23:49> General Exam Limitations: no limitations General appearance: alert, anxious Head exam: Present: atraumatic, normocephalic, normal inspection Eye exam: Present: normal appearance, PERRL, EOMI. Absent: scleral icterus, conjunctival injection, periorbital swelling ENT exam: Present: normal exam, mucous membranes moist Neck exam: Present: normal inspection. Absent: tenderness, meningismus, lymphadenopathy Respiratory exam: Present: normal lung sounds bilaterally. Absent: respiratory distress, wheezes, rales, rhonchi, stridor Cardiovascular Exam: Present: regular rate, normal rhythm, normal heart sounds. Absent: systolic murmur, diastolic murmur, rubs, gallop, clicks GI/Abdominal exam: Present: soft, normal bowel sounds. Absent: distended, tenderness, guarding, rebound, rigid Extremities exam: Present: normal inspection, full ROM, normal capillary refill. Absent: tenderness, pedal edema, joint swelling, calf tenderness Back exam: Present: normal inspection Neurological exam: Present: alert, oriented X3, CN II-XII intact Psychiatric exam: Present: depressed, suicidal ideation Skin exam: Present: warm, dry, intact, normal color. Absent: rash <Troy Don - Last Filed: 06/21/18 23:49> <Davie Martin - Last Filed: 06/22/18 02:00> <Rios Mueller - Last Filed: 06/22/18 15:51> - General Exam Comments Initial Comments: This a well-developed asthenic appearing male who is awake alert and does appear to be oriented 3 there is a smell of alcohol conjoiners on his breath ( Troy Don) Course <Troy Don - Last Filed: 06/21/18 23:49> <Davie Martin - Last Filed: 06/22/18 02:00> <Rios Mueller - Last Filed: 06/22/18 15:51> Vital Signs 06/21/18 06/22/18 06/22/18 23:34 02:31 05:32 Temperature 98.3 F Pulse Rate 80 101 H 70 Respiratory 18 18 18 Rate Blood Pressure 121/86 119/76 O2 Sat by Pulse 98 93 L 94 L Oximetry 06/22/18 07:23 Temperature Pulse Rate Respiratory 18 Rate Blood Pressure 123/72 O2 Sat by Pulse Oximetry - Reevaluation(s) Reevaluation #1: 06/21/18 23:59 Patient did have a petition filled by police which I did observe. Patient will be endorsed to Dr. Martin at our shift change pending evaluation (Troy Don) Procedures - Restraint - Face to Face Restraint Occurrence 1 Patient's Immediate Situation: Endangers self safety, Endangers others' safety Patient's Reaction to the Intervention: Uncooperative, Angry, Hostile, Aggressive, Resistive to care Need to Continue or Terminate Restraint or Seclusion: Continue Face to Face Eval of Restraint Date: 06/22/18 Face to Face Eval of Restraint Time: 01:46 <Davie Martin - Last Filed: 06/22/18 02:00> Medical Decision Making <Troy Don - Last Filed: 06/21/18 23:49> <Davie Martin - Last Filed: 06/22/18 02:00> - Lab Data Result diagrams: 06/22/18 03:41 06/22/18 03:41 <Rios Mueller - Last Filed: 06/22/18 15:51> - Medical Decision Making I was called to evaluate the patient [id number] as she was escalating. The patient was threatening to elope before his behavioral health interview was completed. He would not contract for safety. the patient would not complete the required mouth exam. I did attempt to de-escalate the patient's , explaining that he merely had to complete the behavioral health evaluation and then possibly could be released. Additionally, the patient stated "I'm an old man but I'll get a few shots in." Threatening to strike staff, and at this point I did authorize the staff to provide physical restraints. He was also physically aggressive and therefore also was provided pharmaceutical restraint, to prevent patient/staff injury. (Davie Martin) - Lab Data Lab Results 06/22/18 06/22/18 06/22/18 Range/Units 03:41 03:41 06:53 WBC 6.2 (3.8-10.6) k/uL RBC 4.31 (4.30-5.90) m/uL Hgb 14.1 (13.0-17.5) gm/dL Hct 43.6 (39.0-53.0) % MCV 101.2 H (80.0-100.0) fL MCH 32.7 (25.0-35.0) pg MCHC 32.3 (31.0-37.0) g/dL RDW 12.8 (11.5-15.5) % Plt Count 116 L (150-450) k/uL Neutrophils % 63 % Lymphocytes % 27 % Monocytes % 6 % Eosinophils % 3 % Basophils % 0 % Neutrophils # 3.9 (1.3-7.7) k/uL Lymphocytes # 1.7 (1.0-4.8) k/uL Monocytes # 0.4 (0-1.0) k/uL Eosinophils # 0.2 (0-0.7) k/uL Basophils # 0.0 (0-0.2) k/uL Sodium 144 (137-145) mmol/L Potassium 4.6 (3.5-5.1) mmol/L Chloride 113 H (98-107) mmol/L Carbon Dioxide 21 L (22-30) mmol/L Anion Gap 10 mmol/L BUN 18 (9-20) mg/dL Creatinine 0.88 (0.66-1.25) mg/dL Est GFR (CKD-EPI)AfAm >90 (>60 ml/min/1.73 sqM) Est GFR (CKD-EPI)NonAf >90 (>60 ml/min/1.73 sqM) Glucose 89 (74-99) mg/dL Calcium 9.3 (8.4-10.2) mg/dL Urine Opiates Screen (NotDetected) Ur Oxycodone Screen (NotDetected) Urine Methadone Screen (NotDetected) Ur Propoxyphene Screen (NotDetected) Ur Barbiturates Screen (NotDetected) U Tricyclic Antidepress (NotDetected) Ur Phencyclidine Scrn (NotDetected) Ur Amphetamines Screen (NotDetected) U Methamphetamines Scrn (NotDetected) U Benzodiazepines Scrn (NotDetected) Urine Cocaine Screen (NotDetected) U Marijuana (THC) Screen (NotDetected) Serum Alcohol 18 mg/dL 06/22/18 Range/Units 07:10 WBC (3.8-10.6) k/uL RBC (4.30-5.90) m/uL Hgb (13.0-17.5) gm/dL Hct (39.0-53.0) % MCV (80.0-100.0) fL MCH (25.0-35.0) pg MCHC (31.0-37.0) g/dL RDW (11.5-15.5) % Plt Count (150-450) k/uL Neutrophils % % Lymphocytes % % Monocytes % % Eosinophils % % Basophils % % Neutrophils # (1.3-7.7) k/uL Lymphocytes # (1.0-4.8) k/uL Monocytes # (0-1.0) k/uL Eosinophils # (0-0.7) k/uL Basophils # (0-0.2) k/uL Sodium (137-145) mmol/L Potassium (3.5-5.1) mmol/L Chloride (98-107) mmol/L Carbon Dioxide (22-30) mmol/L Anion Gap mmol/L BUN (9-20) mg/dL Creatinine (0.66-1.25) mg/dL Est GFR (CKD-EPI)AfAm (>60 ml/min/1.73 sqM) Est GFR (CKD-EPI)NonAf (>60 ml/min/1.73 sqM) Glucose (74-99) mg/dL Calcium (8.4-10.2) mg/dL Urine Opiates Screen Not Detected (NotDetected) Ur Oxycodone Screen Not Detected (NotDetected) Urine Methadone Screen Not Detected (NotDetected) Ur Propoxyphene Screen Not Detected (NotDetected) Ur Barbiturates Screen Not Detected (NotDetected) U Tricyclic Antidepress Not Detected (NotDetected) Ur Phencyclidine Scrn Not Detected (NotDetected) Ur Amphetamines Screen Not Detected (NotDetected) U Methamphetamines Scrn Not Detected (NotDetected) U Benzodiazepines Scrn Not Detected (NotDetected) Urine Cocaine Screen Not Detected (NotDetected) U Marijuana (THC) Screen Detected H (NotDetected) Serum Alcohol mg/dL Disposition <Troy Don - Last Filed: 06/21/18 23:49> <Davie Martin - Last Filed: 06/22/18 02:00> <Rios Mueller - Last Filed: 06/22/18 15:51> Clinical Impression: Suicidal ideation, Alcohol intoxication, Psychosis, Depression Disposition: TRANSFER TO PSYCH HOSP/UNIT Condition: Fair Referrals: None,Stated [Primary Care Provider] - 1-2 days
[2018-06-22] MEDS ORDERED: NICOTINE 21MG/24HR PATCH TRANSDERM STA (00:17)
[2018-06-22] MEDS ORDERED: LORazepam 2 MG/ML INJ IM STA (01:44)
[2018-06-22] MEDS ORDERED: ZIPRASIDONE 20 MG VIAL IM STA (01:45)
[2018-06-22] MEDS ORDERED: KETAMINE 50 MG/ML 10 ML VIAL IM ONE (01:57)
[2018-06-22 03:50] LABS: Basophils % (A) 0 %; Eosinophils # (A) 0.2 k/uL (0-0.7); Eosinophils % (A) 3 %; HCT 43.6 % (39.0-53.0); HGB 14.1 gm/dL (13.0-17.5); Lymphocytes # (A) 1.7 k/uL (1.0-4.8); Lymphocytes % (A) 27 %; MCH 32.7 pg (25.0-35.0); MCHC 32.3 g/dL (31.0-37.0); MCV 101.2 fL (80.0-100.0); Mean Platelet Volume 8.6; Monocytes # (A) 0.4 k/uL (0-1.0); Monocytes % (A) 6 %; Neutrophils # (A) 3.9 k/uL (1.3-7.7); Neutrophils % (A) 63 %; Platelet Count 116 k/uL (150-450); RBC 4.31 m/uL (4.30-5.90); RDW 12.8 % (11.5-15.5); WBC 6.2 k/uL (3.8-10.6)
[2018-06-22 04:01] LABS: Anion Gap 10 mmol/L; Blood Urea Nitrogen 18 mg/dL (9-20); Calcium 9.3 mg/dL (8.4-10.2); Carbon Dioxide 21 mmol/L (22-30); Chloride 113 mmol/L (98-107); Glucose 89 mg/dL (74-99); Potassium 4.6 mmol/L (3.5-5.1); Sodium 144 mmol/L (137-145)
[2018-06-22 05:34] VITALS: PULSE 70
[2018-06-22 07:25] VITALS: BP 123/72
[2018-06-22 07:35] LABS: Amphetamine Screen,Urine Not Detected (NotDetected); Barbiturate Screen,Urine Not Detected (NotDetected); Benzodiazepines Screen,Urine Not Detected (NotDetected); Cocaine Screen,Urine Not Detected (NotDetected); Methadone Screen, Urine Not Detected (NotDetected); Opiate Screen,Urine Not Detected (NotDetected); Oxycodone Screen, Urine Not Detected (NotDetected); Phencyclidine Screen,Urine Not Detected (NotDetected); Tricyclic Antidepressant,Urine Not Detected (NotDetected); Urn Cannabinoid Scrn Detected (NotDetected)
[2018-06-22] MEDS ORDERED: LORazepam 1 MG TAB PO STA (11:08)
== END 2018-06-22 18:58 ==
LOC: EC 23:21
DX: F29 Unspecified psychosis not due to a substance or known physiological condition (principal); F10.129 Alcohol abuse with intoxication, unspecified; R45.851 Suicidal ideations; F32.9 Major depressive disorder, single episode, unspecified; J44.9 Chronic obstructive pulmonary disease, unspecified; K21.9 Gastro-esophageal reflux disease without esophagitis; M10.9 Gout, unspecified; N42.9 Disorder of prostate, unspecified; F41.9 Anxiety disorder, unspecified; F43.10 Post-traumatic stress disorder, unspecified; F17.200 Nicotine dependence, unspecified, uncomplicated; Z79.82 Long term (current) use of aspirin; Z79.1 Long term (current) use of non-steroidal anti-inflammatories (NSAID); Z79.899 Other long term (current) drug therapy; Z88.5 Allergy status to narcotic agent; Z88.8 Allergy status to other drugs, medicaments and biological substances; Z53.29 Procedure and treatment not carried out because of patient's decision for other reasons
CPT/HCPCS: 36415; 80048; 85025; 80306; 99285; 96372 ×3; G0480; J2060; J3486; 80320; 82075

== ENCOUNTER → 2019-08-06 | Outpatient (CLI) | payer MEDICARE, OTHER ==
--- NOTE | 2019-08-06 12:37 | CTL ---
EXAMINATION TYPE: CT Low Dose Lung DATE OF EXAM ORDERED: 08/06/2019 HISTORY: . Lung cancer screening CT DLP: 69.[address] CTDI: 2.1 mGy Automated exposure control for dose reduction was used. SCREENING VISIT: COMPARISON: None TECHNIQUE: Low dose computed tomography scan was performed through the chest at 1 mm thick sections a nd reconstructed images in the coronal plane at [address] DIAGNOSTIC QUALITY: Satisfactory FINDINGS: LUNG NODULES: There is a 2 mm right apical subpleural nodule. There is a 3 mm nodule right upper lobe anterior segment image 183. LUNGS: There is moderate changes of COPD. No consolidative process or pleural effusion. No pneumothorax. Sub segmental changes involving the dependent portions of the lung perez is most typical of dependent at electasis. Central and basilar bronchiectasis noted. PLEURAL SPACE: No pleural effusion or calcification. No pneumothorax. HEART: Heart size is normal. There is a small pericardial effusion. No significant coronary artery calcifica tion. Aorta of normal caliber. OTHER FINDINGS: Hypertrophic and degenerative changes of the spine. Nonspecific thickening to the adrenal glands. IMPRESSION: 1. There are 2 less than 5 mm right-sided pulmonary nodules which have a benign appearance. 2. COPD 3. Small pericardial effusion 4. Central and basilar bronchiectasis. FOLLOW UP CT CHEST RECOMMENDATION: [address] LUNG RAD: Lung-Rad 2 Benign Appearance or Behavior
== END | disposition home or self-care (01) ==
LOC: RADCTMAIN 11:40
PROVIDERS: ATTEND Family Medicine
DX: Z12.2 Encounter for screening for malignant neoplasm of respiratory organs (principal); J44.9 Chronic obstructive pulmonary disease, unspecified; J47.9 Bronchiectasis, uncomplicated; I31.3 Pericardial effusion (noninflammatory); Z87.891 Personal history of nicotine dependence

== ENCOUNTER 2019-09-17 07:12 | Day surgery (SDC) | payer MEDICARE, OTHER ==
[2019-09-15 10:51] VITALS: BMI 20.9
[~2019-09-17 07:12] MED LIST: ALPRAZolam 0.25 MG TAB PO PRN; ALPRAZolam 0.5 MG TAB PO PRN; ASPIRIN 325 MG TAB PO STA; SODIUM CHLORIDE 0.9% 1,000 ML in EMPTY BAG 1 BAG IV ONE; ZOLPIDEM 5 MG TAB PO PRN
[2019-09-17] MEDS ORDERED: NICOTINE 21MG/24HR PATCH TRANSDERM STA (07:26)
[2019-09-17] MEDS ORDERED: SODIUM CHLORIDE 0.9% 1,000 ML IV ONE (08:30)
[2019-09-17 08:38] LABS: Basophils # (A) 0.1 k/uL (0-0.2); Basophils % (A) 0 %; Eosinophils # (A) 0.2 k/uL (0-0.7); Eosinophils % (A) 2 %; HCT 45.1 % (39.0-53.0); HGB 15.4 gm/dL (13.0-17.5); Lymphocytes # (A) 2.9 k/uL (1.0-4.8); Lymphocytes % (A) 18 %; MCH 33.8 pg (25.0-35.0); MCHC 34.2 g/dL (31.0-37.0); MCV 98.8 fL (80.0-100.0); Mean Platelet Volume 8.5; Monocytes # (A) 0.9 k/uL (0-1.0); Monocytes % (A) 5 %; Neutrophils # (A) 12.2 k/uL (1.3-7.7); Neutrophils % (A) 74 %; Platelet Count 222 k/uL (150-450); RBC 4.57 m/uL (4.30-5.90); RDW 12.5 % (11.5-15.5); WBC 16.5 k/uL (3.8-10.6)
[2019-09-17 08:47] LABS: African American GFR (CKD) >90 (>60 ml/min/1.73 sqM); Anion Gap 8 mmol/L; Blood Urea Nitrogen 26 mg/dL (9-20); Calcium 9.9 mg/dL (8.4-10.2); Carbon Dioxide 23 mmol/L (22-30); Chloride 110 mmol/L (98-107); Glucose 108 mg/dL (74-99); Non-African American GFR(CKD) >90 (>60 ml/min/1.73 sqM); Potassium 3.8 mmol/L (3.5-5.1); Sodium 141 mmol/L (137-145)
[2019-09-17 09:50] VITALS: RESP 16; TEMP 97.6
[2019-09-17] MEDS ORDERED: MIDAZOLAM 2 MG/2 ML VIAL IV ONE (10:19)
[2019-09-17] MEDS ORDERED: LIDOCAINE 1% INJ 10MG/ML (20 ML MDV) SQ ONE (10:22)
[2019-09-17] MEDS ORDERED: IOPAMIDOL-250 100ML BTL INTRAARTER ONE (10:32)
[2019-09-17] MEDS ORDERED: SODIUM CHLORIDE 0.9% 1,000 ML IV SCH (10:45)
--- NOTE | 2019-09-17 11:00 | AN ---
ANGIOGRAPHY REPORT DATE OF SERVICE: September 17, 2019 PERFORMING PHYSICIAN: Slim Redd MD. PROCEDURE PERFORMED: 1. An abdominal aortogram. 2. Bilateral lower extremities runoff. INDICATION: This is a 59-year-old gentleman who has a history of peripheral arterial disease and prior peripheral revascularization with bilateral fem-pop bypass as well as history of HIV was experiencing bilateral lower extremities intermittent claudication. He was brought today to undergo an aortogram with runoff. APPROACH: Right common femoral artery. COMPLICATION: None. LEVEL OF SEDATION: Moderate with sedation length of 13 minutes. PROCEDURE DESCRIPTION: After obtaining an informed consent, the patient was brought to the cardiac cath lab nurse. The right common femoral artery was cannulated using micropuncture technique and a micropuncture wire passed easily then I placed a 5-Ethiopian sheath in the right common femoral artery. After that, I did an abdominal aortogram and bilateral lower extremities runoff using 5-Ethiopian pigtail catheter which was initially placed at the level of the renal arteries and it was pulled into above the bifurcation of the aorta to right and left common iliac artery. The procedure was completed without any complication. SELECTIVE PERIPHERAL ANGIOGRAM: 1. The aorta appeared to have mild disease only. 2. Common Iliac Arteries: Both appear to be angiographically normal. 3. Internal Iliac Arteries: Both are patent. 4. External Iliac Arteries: Both appear to be angiographically normal. 5. Common Femoral Arteries: Both appear to be angiographically normal. 6. Profunda: Both profunda appeared to be patent. 7. SFA: The patient does have bilateral fem-pop bypass and appeared to be patent. 8. Below the knee: There are 2-vessel runoff below the knee on the right side and 3- vessel runoff below the knee on the left side. CONCLUSION: 1. Mild aortoiliac disease. 2. Patent bilateral femoral-popliteal bypass. 3. Two-vessel runoff below the knee bilaterally. POSTPROCEDURE MANAGEMENT: Giving the above anatomy I did recommend maximized medical treatment at this point and follow up with the patient. MMODL / IJN: [id number] /
[2019-09-17 15:01] VITALS: BP 103/65; PULSE 61
--- NOTE | 2019-09-20 12:13 | IR ---
Fluoroscopy HISTORY: Pain in right leg 1.1 minute fluoroscopy time supplied to the referring clinician. 152 intraoperative C-arm images doc ument the procedure. See dictated report from cardiology.
== END 2019-09-17 16:04 | disposition home or self-care (01) ==
LOC: CATHCVL 07:12
PROVIDERS: ATTEND Internal Medicine Interventional Cardiology
DX: I70.213 Atherosclerosis of native arteries of extremities with intermittent claudication, bilateral legs (principal); Z21 Asymptomatic human immunodeficiency virus [HIV] infection status; I10 Essential (primary) hypertension; E78.5 Hyperlipidemia, unspecified; Z82.49 Family history of ischemic heart disease and other diseases of the circulatory system; F17.210 Nicotine dependence, cigarettes, uncomplicated; Z79.1 Long term (current) use of non-steroidal anti-inflammatories (NSAID); Z79.899 Other long term (current) drug therapy
CPT/HCPCS: 36200; 75625; 75716; 80048; 85025; C1769 ×3; C1894; S4990; J2250; J2001; Q9966

== ENCOUNTER 2022-05-30 22:16 | Emergency (ER) | payer MEDICARE, OTHER ==
[2022-05-30 22:22] VITALS: RESP 18; TEMP 98.3
--- NOTE | 2022-05-31 00:10 | CT ---
EXAMINATION TYPE: CT abdomen pelvis wo con DATE OF EXAM: 05/30/2022 COMPARISON: None HISTORY: Urinary retention CT DLP: mGycm Automated exposure control for dose reduction was used. Images obtained from the diaphragm to the floor of the pelvis with no contrast. There is pulmonary hy perinflation and flattening of the diaphragm. Heart size is normal. No pericardial effusion. Liver spleen stomach appear intact. The bile ducts are not dilated. There is no adrenal mass. No evidence of pancreatic mass. Gallbladder appears normal. Kidneys have normal size. No hydronephrosis. Ureters are not dilated. There is no retroperitoneal fernanda nopathy. Abdominal aorta is atheromatous. The bladder distends smoothly. There is high attenuation in the dependent bladder that could be bladder calculi. There is left-sided inguinal hernia contains lo op of small bowel. The sagittal images show some incarceration and there are some distended fluid-bolivar led small bowel loops in the lower abdomen. Small bowel measures up to 3.1 cm. The appendix appears n ormal. The distal ileum is not dilated. There is no mesenteric edema. No ascites. No sign of free air. The lumbar spine shows normal alignmen t of the vertebra. Disc spaces are fairly normal. There is T12 anterior wedging 25%. The hip joints a re intact. There is mild acetabular spurring on the left side. Proximal femurs are intact. Pelvic rin g is intact. IMPRESSION: Incarcerated left-sided inguinal hernia containing loop of small bowel with evidence of at least a pa rtial mechanical small bowel obstruction. Normal appendix. No evidence of urinary retention. Urinary bladder not dilated. Bladder calculi.
[2022-05-31] MEDS ORDERED: ONDANSETRON 4 MG/2 ML VIAL IVP STA (00:24)
[2022-05-31] MEDS ORDERED: HYDROmorphone 0.5 MG/0.5 ML SYRINGE IVP STA ×2 (00:42→01:20)
--- NOTE | 2022-05-31 00:44 | ED ---
Abdominal Pain HPI - General Chief Complaint: Urogenital Stated Complaint: urinary retention Time Seen by Provider: 05/30/22 23:29 Source: patient, RN notes reviewed Mode of arrival: ambulatory - History of Present Illness Initial Comments: This is a 62-year-old male who presents to the emergency department for urinary issues and concerns of a hernia. Patient states that for the last week, he has had a bulge in his left lower quadrant. He had been able to push it back in unt il today, and states that he has tried very hard to push it back in with no success. His pain is getting much worse and he also has associated nausea. Last bowel movement was 2-3 days ago. States that he usually has 3-4 bowel movements a day. Additionally, he has had ongoing urinary issues. States that he was a patient of Dr. Wen and he used to get a prescription for supplies to self catheterize. However, given the issues with Dr. Wen, he has not been able to follow-up. He has since been using tubing from an aquarium to catheterize himself. Denies any fevers, chills, sore throat, cough, dyspnea, chest pain, palpitations, vomiting, diarrhea, back pain, or headaches. MD Complaint: abdominal pain Onset/Timin -: week(s) Location: [facility] Associated Symptoms: nausea - Related Data Home Medications Medication Instructions Recorded Confirmed Doxazosin [Cardura] 4 mg PO DAILY 10/06/17 09/17/19 Tiotropium 18 Mcg/Puff [Spiriva] 1 cap INHALATION RT-DAILY 10/06/17 09/17/19 lisinopriL [Zestril] 2.5 mg PO DAILY 10/06/17 09/17/19 Aspirin EC [Ecotrin Low Dose] 81 mg PO DAILY 03/31/18 09/17/19 Elviteg/Cob/Emtri/Tenof Alafen 1 tab PO AC-BRKFST 03/31/18 09/17/19 [Genvoya Tablet] Gabapentin 600 mg PO TID 03/31/18 09/17/19 Naproxen 500 mg PO DAILY 03/31/18 09/17/19 ondansetron HCL [Zofran] 4 mg PO Q8H PRN 03/31/18 09/15/19 Albuterol Sulfate [Proair Hfa] 1 - 2 puff INHALATION RT-Q6H PRN 06/22/18 09/17/19 QUEtiapine [SEROquel] 100 mg PO HS PRN 06/22/18 09/15/19 HYDROcodone/APAP 10-325MG [[place] 1 tab PO Q8HR PRN 09/15/19 09/17/19 10-325] Ibuprofen [Motrin] 800 mg PO DIRECTED PRN 09/15/19 09/15/19 Rosuvastatin [Crestor] 20 mg PO DAILY 09/15/19 09/17/19 Allergies Allergy/AdvReac Type Severity Reaction Status Date / Time buprenorphine [From Suboxone] Allergy Unknown Verified 05/30/22 22:22 morphine Allergy Nausea Verified 05/30/22 22:22 naloxone [From Suboxone] Allergy Unknown Verified 05/30/22 22:22 Review of Systems ROS Statement: Those systems with pertinent positive or pertinent negative responses have been documented in the HPI. ROS Other: All systems not noted in ROS Statement are negative. 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, Scoliosis, HIV, Acute arterial thrombosis requiring thrombectomy, migraines, "stroke or mini stroke-not sure what", History of Any Multi-Drug Resistant Organisms: None Reported Past Surgical History: Hernia Repair Additional Past Surgical History / Comment(s): RT INGUINAL HERNIA, UMBILICAL HERNIA, FEM POP BYPASS, biopsy of lymph node and growth in breast Past Anesthesia/Blood Transfusion Reactions: Blood Transfusion Reaction, Motion Sickness Additional Past Anesthesia/Blood Transfusion Reaction / Comment(s): PT CONTRACTED HIV FROM BLOOD TRANSFUSION 1976 Past Psychological History: Anxiety, Depression, PTSD Past Alcohol Use History: Occasional Past Drug Use History: Marijuana, Opiates - Past Family History none Family Medical History: No Reported History Additional Family Medical History / Comment(s): Patient reports he does not speak to his family and doesn't know their history. General Exam General appearance: alert, in no apparent distress Head exam: Present: atraumatic, normocephalic, normal inspection Respiratory exam: Present: normal lung sounds bilaterally. Absent: respiratory distress, wheezes, rales, rhonchi, stridor Cardiovascular Exam: Present: regular rate, normal rhythm, normal heart sounds. Absent: systolic murmur, diastolic murmur, rubs, gallop, clicks GI/Abdominal exam: Present: soft, tenderness, normal bowel sounds. Absent: distended, guarding, rebound, rigid Neurological exam: Present: alert, oriented X3, CN II-XII intact Psychiatric exam: Present: normal affect, normal mood Skin exam: Present: warm, dry, intact, normal color. Absent: rash Course Vital Signs 05/30/22 05/31/22 22:19 03:33 Temperature 98.3 F Pulse Rate 77 72 Respiratory 18 18 Rate Blood Pressure 123/75 119/65 O2 Sat by Pulse 95 98 Oximetry Medical Decision Making - Medical Decision Making This is a 62-year-old male who presents to the emergency department for concerns of a hernia and urinary retention. Computed tomography scan of the abdomen and pelvis was obtained revealing an incarcerated left inguinal hernia. I spoke with Dr. Cohen, general surgery. He advised trying to reduce this, and if we were unsuccessful to admit the patient. Lab work was obtained and found to be unremarkable. The patient was given a dose of Dilaudid and placed in Trendelenburg position. Dr. Gaston was able to successfully reduce the patient's hernia. Instructed the patient to use the restroom and try to bear down as if he was having a bowel movement. The hernia did not pop back out when he did this. He also reports an improvement in pain. Patient stable for discharge home. I did write a prescription for the patient to receive catheters from a medical supply store to prevent him from continuing to use aquarium tubing. This was written for 16-[place] straight-tip intermittent catheters for a quantity of 120. He uses these 4 times a day for the 30 days. Diagnosis is urinary retention. He was also sent home with a few catheters. Patient was given information for follow-up with Dr. Cohen, general surgery regarding his hernia. He will also follow-up with urology as scheduled at the end of June. Return precautions reviewed in depth, the patient is instructed to return to the emergency department with any new, worsening, or concerning symptoms, and if his hernia pops back out. Patient verbalized understanding. This case was discussed in detail with the attending ED physician. Presentation, findings, and treatment plan discussed in detail as well. - Lab Data Result diagrams: 05/31/22 00:05/31/22 00:26 Lab Results 05/31/22 05/31/22 05/31/22 Range/Units 00: 00: 00:26 WBC 8.7 (3.8-10.6) k/uL RBC 4.60 (4.30-5.90) m/uL Hgb 14.8 (13.0-17.5) gm/dL Hct 45.3 (39.0-53.0) % MCV 98.4 (80.0-100.0) fL MCH 32.1 (25.0-35.0) pg MCHC 32.6 (31.0-37.0) g/dL RDW 12.3 (11.5-15.5) % Plt Count 221 (150-450) k/uL MPV 8.1 Neutrophils % 67 % Lymphocytes % 23 % Monocytes % 7 % Eosinophils % 0 % Basophils % 1 % Neutrophils # 5.8 (1.3-7.7) k/uL Lymphocytes # 2.0 (1.0-4.8) k/uL Monocytes # 0.6 (0-1.0) k/uL Eosinophils # 0.0 (0-0.7) k/uL Basophils # 0.1 (0-0.2) k/uL Sodium 142 (137-145) mmol/L Potassium 4.2 (3.5-5.1) mmol/L Chloride 106 (98-107) mmol/L Carbon Dioxide 23 (22-30) mmol/L Anion Gap 13 mmol/L BUN 20 (9-20) mg/dL Creatinine 0.82 (0.66-1.25) mg/dL Est GFR (CKD-EPI)AfAm >90 (>60 ml/min/1.73 sqM) Est GFR (CKD-EPI)NonAf >90 (>60 ml/min/1.73 sqM) Glucose 89 (74-99) mg/dL Plasma Lactic Acid Luis (0.7-2.0) mmol/L Calcium 9.7 (8.4-10.2) mg/dL Total Bilirubin 0.4 (0.2-1.3) mg/dL AST 33 (17-59) U/L ALT 21 (4-49) U/L Alkaline Phosphatase 67 (38-126) U/L Total Protein 7.9 (6.3-8.2) g/dL Albumin 4.8 (3.5-5.0) g/dL Urine Color Yellow Urine Appearance Cloudy (Clear) Urine pH 6.5 (5.0-8.0) Ur Specific [place] 1.019 (1.001-1.035) Urine Protein Negative (Negative) Urine Glucose (UA) Negative (Negative) Urine Ketones Negative (Negative) Urine Blood Negative (Negative) Urine Nitrite Negative (Negative) Urine Bilirubin Negative (Negative) Urine Urobilinogen <2.0 (<2.0) mg/dL Ur Leukocyte Esterase Negative (Negative) Urine RBC 4 (0-5) /hpf Urine WBC 2 (0-5) /hpf Ur Squamous Epith Cells <1 (0-4) /hpf Amorphous Sediment Rare H (None) /hpf Urine Mucus Rare H (None) /hpf 05/31/22 Range/Units 00:26 WBC (3.8-10.6) k/uL RBC (4.30-5.90) m/uL Hgb (13.0-17.5) gm/dL Hct (39.0-53.0) % MCV (80.0-100.0) fL MCH (25.0-35.0) pg MCHC (31.0-37.0) g/dL RDW (11.5-15.5) % Plt Count (150-450) k/uL MPV Neutrophils % % Lymphocytes % % Monocytes % % Eosinophils % % Basophils % % Neutrophils # (1.3-7.7) k/uL Lymphocytes # (1.0-4.8) k/uL Monocytes # (0-1.0) k/uL Eosinophils # (0-0.7) k/uL Basophils # (0-0.2) k/uL Sodium (137-145) mmol/L Potassium (3.5-5.1) mmol/L Chloride (98-107) mmol/L Carbon Dioxide (22-30) mmol/L Anion Gap mmol/L BUN (9-20) mg/dL Creatinine (0.66-1.25) mg/dL Est GFR (CKD-EPI)AfAm (>60 ml/min/1.73 sqM) Est GFR (CKD-EPI)NonAf (>60 ml/min/1.73 sqM) Glucose (74-99) mg/dL Plasma Lactic Acid Luis 1.5 (0.7-2.0) mmol/L Calcium (8.4-10.2) mg/dL Total Bilirubin (0.2-1.3) mg/dL AST (17-59) U/L ALT (4-49) U/L Alkaline Phosphatase (38-126) U/L Total Protein (6.3-8.2) g/dL Albumin (3.5-5.0) g/dL Urine Color Urine Appearance (Clear) Urine pH (5.0-8.0) Ur Specific [place] (1.001-1.035) Urine Protein (Negative) Urine Glucose (UA) (Negative) Urine Ketones (Negative) Urine Blood (Negative) Urine Nitrite (Negative) Urine Bilirubin (Negative) Urine Urobilinogen (<2.0) mg/dL Ur Leukocyte Esterase (Negative) Urine RBC (0-5) /hpf Urine WBC (0-5) /hpf Ur Squamous Epith Cells (0-4) /hpf Amorphous Sediment (None) /hpf Urine Mucus (None) /hpf - Radiology Data Radiology results: report reviewed, image reviewed Disposition Clinical Impression: Inguinal hernia, left Disposition: HOME SELF-CARE Instructions (If sedation given, give patient instructions): Inguinal Hernia (ED) Additional Instructions: Return to the emergency department with any new, worsening, or concerning symptoms, and if the hernia pops out again. Contact Dr. Cohen's office for a follow-up appointment regarding the hernia. Is patient prescribed a controlled substance at d/c from ED?: No Referrals: None,Stated [Primary Care Provider] - 1-2 days Jan Cohen MD [Medical Doctor] - 1-2 days
[2022-05-31 01:00] LABS: Basophils # (A) 0.1 k/uL (0-0.2); Basophils % (A) 1 %; Eosinophils % (A) 0 %; HCT 45.3 % (39.0-53.0); HGB 14.8 gm/dL (13.0-17.5); Lymphocytes % (A) 23 %; MCH 32.1 pg (25.0-35.0); MCHC 32.6 g/dL (31.0-37.0); MCV 98.4 fL (80.0-100.0); Mean Platelet Volume 8.1; Monocytes # (A) 0.6 k/uL (0-1.0); Monocytes % (A) 7 %; Neutrophils # (A) 5.8 k/uL (1.3-7.7); Neutrophils % (A) 67 %; Platelet Count 221 k/uL (150-450); RDW 12.3 % (11.5-15.5); WBC 8.7 k/uL (3.8-10.6)
[2022-05-31 01:10] LABS: ALT 21 U/L (4-49); AST 33 U/L (17-59); African American GFR (CKD) >90 (>60 ml/min/1.73 sqM); Albumin 4.8 g/dL (3.5-5.0); Alkaline Phosphatase 67 U/L (38-126); Anion Gap 13 mmol/L; Blood Urea Nitrogen 20 mg/dL (9-20); Calcium 9.7 mg/dL (8.4-10.2); Carbon Dioxide 23 mmol/L (22-30); Chloride 106 mmol/L (98-107); Glucose 89 mg/dL (74-99); Non-African American GFR(CKD) >90 (>60 ml/min/1.73 sqM); Potassium 4.2 mmol/L (3.5-5.1); Sodium 142 mmol/L (137-145); Total Bilirubin 0.4 mg/dL (0.2-1.3); Total Protein 7.9 g/dL (6.3-8.2)
[2022-05-31 01:45] LABS: Amorphous Sediment,Urine Rare /hpf; Appearance,Urine Cloudy (Clear); Bilirubin,Urine Negative (Negative); Blood,Urine Negative (Negative); Color,Urine Yellow; Glucose,Urine (UA) Negative (Negative); Ketones,Urine Negative (Negative); Leukocyte Esterase,Urine Negative (Negative); Mucus,Urine Rare /hpf; Nitrite,Urine Negative (Negative); PH, Urine 6.5 (5.0-8.0); Protein,Urine Negative (Negative); RBC,Urine 4 /hpf (0-5); Specific Gravity,Urine 1.019 (1.001-1.035); Squamous Epithelial Cell,Urine <1 /hpf (0-4); Urobilinogen,Urine <2.0 mg/dL (<2.0); WBC,Urine 2 /hpf (0-5)
[2022-05-31 03:35] VITALS: BP 119/65; PULSE 72
[2022-06-01 12:50] LABS: T4/T8 Ratio (CD4:CD8) 0.6 (1.0-3.7)
== END 2022-05-31 03:36 | disposition home or self-care (01) ==
LOC: EC 22:16
DX: K40.90 Unilateral inguinal hernia, without obstruction or gangrene, not specified as recurrent (principal); R33.9 Retention of urine, unspecified; J44.9 Chronic obstructive pulmonary disease, unspecified; E78.5 Hyperlipidemia, unspecified; M19.90 Unspecified osteoarthritis, unspecified site; Z86.73 Personal history of transient ischemic attack (TIA), and cerebral infarction without residual deficits; Z86.718 Personal history of other venous thrombosis and embolism; Z86.69 Personal history of other diseases of the nervous system and sense organs; Z79.891 Long term (current) use of opiate analgesic; Z79.51 Long term (current) use of inhaled steroids; Z79.899 Other long term (current) drug therapy; Z88.5 Allergy status to narcotic agent; Z88.6 Allergy status to analgesic agent
CPT/HCPCS: 36415; 80053; 86360; 83605; 85025; 81001; 74176; 99284; 96374; 96375; J2405; J1170

== ENCOUNTER 2022-10-21 22:39 | Inpatient (IN) | payer MEDICARE, OTHER ==
--- NOTE | 2022-10-21 22:48 | ED ---
General Adult HPI - General Source: patient, RN notes reviewed Mode of arrival: ambulatory Limitations: no limitations <Jin Bravo - Last Filed: 10/21/22 22:46> - History of Present Illness Onset/Timin -: days(s) Location: abdomen Radiation: non-radiation Quality: aching Consistency: constant Improves with: none Worsens with: none Associated Symptoms: nausea/vomiting Treatments Prior to Arrival: none <Davie Martin - Last Filed: 10/24/22 04:34> - General Stated complaint: Hernia Time Seen by Provider: 10/21/22 22:46 - History of Present Illness Initial comments: 62-year-old male presents emergency Department chief complaint left sided h ernia. Patient states he has known hernia states she's not had a bowel movement 3 days states she's had increasing pain he has been seen in emergency from for this in the past he states he states his instructions were told to return if he is unable to have bowel movement. Patient has any vomiting (Jin Bravo) This patient is a 62-year-old man here to have evaluation for what he believes is a hernia left inguinal area. Patient states he was diagnosed with hernia the re number of months ago, had followed up with surgeon, but has not had surgery yet. We'll course of last couple of days he has had increasing left inguinal abdominal pain. Over the course of the last night he has developed nausea and vomiting. Patient states he has not had a bowel movement in 3 days and then stopped passing flatus yesterday. (Davie Martin) - Related Data Home Medications Medication Instructions Recorded Confirmed Tiotropium 18 Mcg/Puff [Spiriva] 1 cap INHALATION RT-DAILY 10/06/17 10/22/22 Elviteg/Cob/Emtri/Tenof Alafen 1 tab PO DAILY 03/31/18 10/22/22 [Genvoya Tablet] Albuterol Sulfate [Proair Hfa] 2 puff INHALATION RT-Q6H PRN 06/22/18 10/22/22 Rosuvastatin [Crestor] 20 mg PO DAILY 09/15/19 10/22/22 Budesonide/Formoterol Fumarate 2 puff INHALATION RT-BID 10/22/22 10/22/22 [Symbicort 160-4.5 Mcg Inhaler] Docusate [Colace] 100 mg PO TID 10/22/22 10/22/22 Tamsulosin [Flomax] 0.4 mg PO DAILY 10/22/22 10/22/22 Allergies Allergy/AdvReac Type Severity Reaction Status Date / Time buprenorphine [From Suboxone] AdvReac Nausea Verified 10/22/22 13:51 morphine AdvReac Nausea Verified 10/22/22 13:51 naloxone [From Suboxone] AdvReac Nausea Verified 10/22/22 13:51 Review of Systems ROS Other: All systems not noted in ROS Statement are negative. <Jin Bravo - Last Filed: 10/21/22 22:46> ROS Other: All systems not noted in ROS Statement are negative. Constitutional: Denies: fever, chills Respiratory: Denies: cough, dyspnea Cardiovascular: Denies: chest pain, palpitations, edema Gastrointestinal: Reports: abdominal pain, nausea, vomiting, constipation. Denies: diarrhea, melena, hematochezia Genitourinary: Denies: dysuria, frequency, hematuria, testicular pain, testicular mass Musculoskeletal: Denies: back pain Skin: Denies: rash Neurological: Denies: headache <Davie Martin - Last Filed: 10/24/22 04:34> ROS Statement: Those systems with pertinent positive or pertinent negative responses have been documented in the HPI. 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, Scoliosis, HIV, Acute arterial thrombosis requiring thrombectomy, migraines, "stroke or mini stroke-not sure what", History of Any Multi-Drug Resistant Organisms: None Reported Past Surgical History: Hernia Repair Additional Past Surgical History / Comment(s): RT INGUINAL HERNIA, UMBILICAL HERNIA, FEM POP BYPASS, biopsy of lymph node and growth in breast Past Anesthesia/Blood Transfusion Reactions: Blood Transfusion Reaction, Motion Sickness Additional Past Anesthesia/Blood Transfusion Reaction / Comment(s): PT CONTRACTED HIV FROM BLOOD TRANSFUSION 1976 Past Psychological History: Anxiety, Depression, PTSD Past Alcohol Use History: Occasional Past Drug Use History: Marijuana, Opiates - Past Family History none Family Medical History: No Reported History Additional Family Medical History / Comment(s): Patient reports he does not speak to his family and doesn't know their history. <Jin Bravo Lianne - Last Filed: 10/21/22 22:46> General Exam General appearance: alert, in no apparent distress Head exam: Present: atraumatic, normocephalic Eye exam: Present: normal appearance. Absent: scleral icterus, conjunctival injection Neck exam: Present: normal inspection Respiratory exam: Present: normal lung sounds bilaterally. Absent: respiratory distress, wheezes, rales, rhonchi, stridor Cardiovascular Exam: Present: regular rate, normal rhythm, normal heart sounds. Absent: systolic murmur, diastolic murmur, rubs, gallop GI/Abdominal exam: Present: soft, tenderness, diminished bowel sounds, hernia (Left inguinal area). Absent: distended, guarding, rebound, rigid, organomegaly, mass Extremities exam: Present: normal inspection, normal capillary refill. Absent: pedal edema, calf tenderness Back exam: Present: normal inspection. Absent: CVA tenderness (R), CVA tenderness (L) Neurological exam: Present: alert Skin exam: Present: warm, dry, intact, normal color. Absent: rash <Davie Martin - Last Filed: 10/24/22 04:34> Course Vital Signs 10/21/22 10/22/22 10/22/22 23:06 03:30 05:44 Temperature 97.5 F L Pulse Rate 71 68 70 Respiratory 18 16 16 Rate Blood Pressure 123/79 118/76 120/76 O2 Sat by Pulse 96 96 96 Oximetry 10/22/22 13:32 Temperature Pulse Rate 75 Respiratory 15 Rate Blood Pressure 121/73 O2 Sat by Pulse 99 Oximetry Medical Decision Making - Lab Data Result diagrams: 10/21/22 23:25 10/21/22 23:25 <Davie Martin - Last Filed: 10/24/22 04:34> - Medical Decision Making Patient is 62-year-old man presenting with left inguinal abdominal pain, also having persistent nausea and vomiting. The patient has workup here revealing incarcerated left inguinal hernia with evidence of bowel obstruction on the computed tomography scan. Patient is discussed with surgeon on-call who will admit. Patient kept nothing by mouth. Was pt. sent in by a medical professional or institution? @ -no Did you speak to anyone other than the patient for history? @ -[no Did you review nursing and triage notes? @ -[agree Were old charts reviewed? @ -[No Differential Diagnosis? @ -[Differential Abdominal Pain Men: Appendicitis, cholecystitis, diverticulosis, ischemic bowel, pancreatitis, hepatitis, UTI, gastroenteritis, AAA, incarcerated hernia, bowel obstruction, constipation, inflammatory bowel, hepatitis, peptic ulcer disease, splenic infarction, perforated viscus, testicular torsion, this is not meant to be an all-inclusive list EKG interpreted by me (3pts min.)? @ -[none] X-rays interpreted by me (1pt min.)? @ -[ CT interpreted by me (1pt min.)? @ -[See chart U/S interpreted by me (1pt. min.)? @ -[none] What testing was considered but not performed? (CT, X-rays, U/S, labs)? Why? @ [ What meds were considered but not given? Why? @ -[none] Did you discuss the management of the patient with other professionals? @ -Admitting physician Did you reconcile home meds? @ -[Yes Was smoking cessation discussed for >3mins.? @ -[Yes Was critical care preformed (if so, how long)? @ -[none] Were there social determinants of health that impacted care today? How? (Homelessness, low income, unemployed, alcoholism, drug addiction, transportation, low edu. Level, literacy, decrease access to med. care, [facility], rehab)? @ -[No Was there de-escalation of care discussed even if they declined? (Discuss DNR or withdrawal of care, Hospice)? @ -[No What co-morbidities impacted this encounter? (DM, HTN, Smoking, COPD, CAD, Cancer, CVA, Hep., AIDS, mental health diagnosis, sleep apnea, morbid obesity)? @ -[None Was patient admitted / discharged? @ -[Admitted Undiagnosed new problem with uncertain prognosis? @ -[none] Drug Therapy requiring intensive monitoring for toxicity (Heparin, Nitro, Insulin, Cardizem)? @ -[none] Were any procedures done? @ -[none] Diagnosis/symptom? @ -[Abdominal pain Incarcerated inguinal hernia Acute, or Chronic, or Acute on Chronic? @ -[Acute Uncomplicated (without systemic symptoms) or Complicated (systemic symptoms)? @ -[Uncomplicated Side effects of treatment? @ -[none] Exacerbation, Progression, or Severe Exacerbation] @ -[no] Poses a threat to life or bodily function? @ -[no] (Davie Martin) - Lab Data Lab Results 10/21/22 10/21/22 10/21/22 Range/Units 23:25 23:25 23:25 WBC 11.0 H (3.8-10.6) k/uL RBC 4.82 (4.30-5.90) m/uL Hgb 15.7 (13.0-17.5) gm/dL Hct 46.4 (39.0-53.0) % MCV 96.4 (80.0-100.0) fL MCH 32.5 (25.0-35.0) pg MCHC 33.7 (31.0-37.0) g/dL RDW 12.6 (11.5-15.5) % Plt Count 237 (150-450) k/uL MPV 7.3 Neutrophils % 77 % Lymphocytes % 16 % Monocytes % 5 % Eosinophils % 1 % Basophils % 0 % Neutrophils # 8.5 H (1.3-7.7) k/uL Lymphocytes # 1.8 (1.0-4.8) k/uL Monocytes # 0.5 (0-1.0) k/uL Eosinophils # 0.1 (0-0.7) k/uL Basophils # 0.0 (0-0.2) k/uL Sodium 140 (137-145) mmol/L Potassium 4.0 (3.5-5.1) mmol/L Chloride 105 (98-107) mmol/L Carbon Dioxide 28 (22-30) mmol/L Anion Gap 7 mmol/L BUN 14 (9-20) mg/dL Creatinine 0.76 (0.66-1.25) mg/dL Est GFR (CKD-EPI)AfAm >90 (>60 ml/min/1.73 sqM) Est GFR (CKD-EPI)NonAf >90 (>60 ml/min/1.73 sqM) Glucose 114 H (74-99) mg/dL Plasma Lactic Acid Luis 0.8 (0.7-2.0) mmol/L Calcium 9.8 (8.4-10.2) mg/dL Total Bilirubin 0.7 (0.2-1.3) mg/dL AST 25 (17-59) U/L ALT 25 (4-49) U/L Alkaline Phosphatase 59 (38-126) U/L Total Protein 8.1 (6.3-8.2) g/dL Albumin 4.7 (3.5-5.0) g/dL Urine Color Urine Appearance (Clear) Urine pH (5.0-8.0) Ur Specific [place] (1.001-1.035) Urine Protein (Negative) Urine Glucose (UA) (Negative) Urine Ketones (Negative) Urine Blood (Negative) Urine Nitrite (Negative) Urine Bilirubin (Negative) Urine Urobilinogen (<2.0) mg/dL Ur Leukocyte Esterase (Negative) Urine RBC (0-5) /hpf Urine WBC (0-5) /hpf Urine Bacteria (None) /hpf Urine Mucus (None) /hpf 10/22/22 Range/Units 03:52 WBC (3.8-10.6) k/uL RBC (4.30-5.90) m/uL Hgb (13.0-17.5) gm/dL Hct (39.0-53.0) % MCV (80.0-100.0) fL MCH (25.0-35.0) pg MCHC (31.0-37.0) g/dL RDW (11.5-15.5) % Plt Count (150-450) k/uL MPV Neutrophils % % Lymphocytes % % Monocytes % % Eosinophils % % Basophils % % Neutrophils # (1.3-7.7) k/uL Lymphocytes # (1.0-4.8) k/uL Monocytes # (0-1.0) k/uL Eosinophils # (0-0.7) k/uL Basophils # (0-0.2) k/uL Sodium (137-145) mmol/L Potassium (3.5-5.1) mmol/L Chloride (98-107) mmol/L Carbon Dioxide (22-30) mmol/L Anion Gap mmol/L BUN (9-20) mg/dL Creatinine (0.66-1.25) mg/dL Est GFR (CKD-EPI)AfAm (>60 ml/min/1.73 sqM) Est GFR (CKD-EPI)NonAf (>60 ml/min/1.73 sqM) Glucose (74-99) mg/dL Plasma Lactic Acid Luis (0.7-2.0) mmol/L Calcium (8.4-10.2) mg/dL Total Bilirubin (0.2-1.3) mg/dL AST (17-59) U/L ALT (4-49) U/L Alkaline Phosphatase (38-126) U/L Total Protein (6.3-8.2) g/dL Albumin (3.5-5.0) g/dL Urine Color Yellow Urine Appearance Clear (Clear) Urine pH 6.5 (5.0-8.0) Ur Specific [place] 1.008 (1.001-1.035) Urine Protein Negative (Negative) Urine Glucose (UA) Negative (Negative) Urine Ketones Negative (Negative) Urine Blood Trace H (Negative) Urine Nitrite Negative (Negative) Urine Bilirubin Negative (Negative) Urine Urobilinogen <2.0 (<2.0) mg/dL Ur Leukocyte Esterase Negative (Negative) Urine RBC 7 H (0-5) /hpf Urine WBC 1 (0-5) /hpf Urine Bacteria Rare H (None) /hpf Urine Mucus Rare H (None) /hpf Disposition <Jin Bravo - Last Filed: 10/21/22 22:46> Is patient prescribed a controlled substance at d/c from ED?: No <Davie Martin - Last Filed: 10/24/22 04:34> Clinical Impression: Incarcerated left inguinal hernia, Abdominal pain Disposition: ADMITTED IP TO THIS HOSP Condition: Fair
[2022-10-21 23:38] LABS: Basophils % (A) 0 %; Eosinophils # (A) 0.1 k/uL (0-0.7); Eosinophils % (A) 1 %; HCT 46.4 % (39.0-53.0); HGB 15.7 gm/dL (13.0-17.5); Lymphocytes # (A) 1.8 k/uL (1.0-4.8); Lymphocytes % (A) 16 %; MCH 32.5 pg (25.0-35.0); MCHC 33.7 g/dL (31.0-37.0); MCV 96.4 fL (80.0-100.0); Mean Platelet Volume 7.3; Monocytes # (A) 0.5 k/uL (0-1.0); Monocytes % (A) 5 %; Neutrophils # (A) 8.5 k/uL (1.3-7.7); Neutrophils % (A) 77 %; Platelet Count 237 k/uL (150-450); RBC 4.82 m/uL (4.30-5.90); RDW 12.6 % (11.5-15.5)
--- NOTE | 2022-10-21 23:53 | CT ---
EXAMINATION TYPE: CT abdomen pelvis wo con DATE OF EXAM: 10/21/2022 COMPARISON: 05/30/2022 HISTORY: left side inguinal hernia. CT DLP: 376.7 mGycm Automated exposure control for dose reduction was used. Images obtained from the diaphragm to the floor of the pelvis with no contrast. Lung bases are clear. No pleural effusion. Heart size is normal. No pericardial effusion. Liver spleen stomach and pancreas appear intact. The bile ducts are not dilated. Gallbladder is shade l. There is no adrenal mass. Kidneys have normal size. No hydronephrosis. No evidence of a renal calculu s. No retroperitoneal adenopathy. The bladder distends smoothly. No inguinal hernia. No free fluid in the pelvis. There are some fluid-filled distended small bowel loops in the mid abdomen. Small bowel dilated up to 3.3 cm. There is left inguinal hernia containing small bowel and this is the transition point. The t erminal ileum is not dilated. No intestinal wall thickening. No free air. No ascites. Appendix is lat eral and appears normal. There are small calcifications in the dependent urinary bladder. The lumbar vertebra show normal alignment. There is T12 anterior wedging 25% that appears old. Bony p federico is intact. IMPRESSION: Chronic incarcerated left inguinal hernia containing small bowel and producing a mechanical small bow el obstruction. Dilated small bowel similar to old exam. There are small bladder calculi. Unchanged. Normal appendix.
[2022-10-22 00:01] LABS: ALT 25 U/L (4-49); AST 25 U/L (17-59); African American GFR (CKD) >90 (>60 ml/min/1.73 sqM); Albumin 4.7 g/dL (3.5-5.0); Alkaline Phosphatase 59 U/L (38-126); Anion Gap 7 mmol/L; Blood Urea Nitrogen 14 mg/dL (9-20); Calcium 9.8 mg/dL (8.4-10.2); Carbon Dioxide 28 mmol/L (22-30); Chloride 105 mmol/L (98-107); Glucose 114 mg/dL (74-99); Non-African American GFR(CKD) >90 (>60 ml/min/1.73 sqM); Sodium 140 mmol/L (137-145); Total Bilirubin 0.7 mg/dL (0.2-1.3); Total Protein 8.1 g/dL (6.3-8.2)
[2022-10-22] MEDS ORDERED: NICOTINE 21MG/24HR PATCH TRANSDERM STA (03:34)
[2022-10-22 04:14] LABS: Appearance,Urine Clear (Clear); Bacteria,Urine Rare /hpf; Bilirubin,Urine Negative (Negative); Blood,Urine Trace (Negative); Color,Urine Yellow; Glucose,Urine (UA) Negative (Negative); Ketones,Urine Negative (Negative); Leukocyte Esterase,Urine Negative (Negative); Mucus,Urine Rare /hpf; Nitrite,Urine Negative (Negative); PH, Urine 6.5 (5.0-8.0); Protein,Urine Negative (Negative); RBC,Urine 7 /hpf (0-5); Specific Gravity,Urine 1.008 (1.001-1.035); Urobilinogen,Urine <2.0 mg/dL (<2.0); WBC,Urine 1 /hpf (0-5)
[2022-10-22] MEDS ORDERED: ONDANSETRON 4 MG/2 ML VIAL IVP PRN ×2 (04:40→17:06)
[2022-10-22] MEDS ORDERED: NALOXONE 0.4 MG/ML 1 ML VIAL IV PRN (04:40)
[2022-10-22] MEDS ORDERED: MORPHINE SULFATE 4 MG/ML SYRINGE IV PRN (04:40)
[2022-10-22] MEDS: SODIUM CHLORIDE 0.9% 1,000 ML IV SCH ×2 (05:09→11:00)
--- NOTE | 2022-10-22 10:27 | P.GSHP ---
History of Present Illness H&P Date: 10/22/22 CHIEF COMPLAINT: Abdominal pain HISTORY OF PRESENT ILLNESS: This is a 62-year-old male who presents with a left- sided inguinal hernia. Patient reports that he's had this left inguinal hernia for several months. He is usually able to reduce it at home. Sometimes he is had to come into the ER to have it reduced. Yesterday he was unable to reduce the hernia and presented to the ER due to increase in pain. Patient reports that his bowel movements have been very small and hard. He has had some nausea and vomiting. He had a computed tomography scan abdomen and pelvis that had shown chronic incarcerated left inguinal hernia containing small bowel and producing a mechanical small bowel obstruction. Patient's hernia was reduced in the ER by the ER physician. Patient has a past surgical history of umbilical hernia repair and a right inguinal hernia repair. PAST MEDICAL HISTORY: See below PAST SURGICAL HISTORY: See below MEDICATIONS: See below ALLERGIES: See below SOCIAL HISTORY: No illicit drug use. REVIEW OF SYSTEMS: CONSTITUTIONAL: Denies fever or chills. HEENT: Denies blurred vision, vision changes, or eye pain. Denies hemoptysis CARDIOVASCULAR: Denies chest pain or pressure. RESPIRATORY: No shortness of breath. GASTROINTESTINAL: See HPI for pertinent findings HEMATOLOGIC: Denies bleeding disorders. GENITOURINARY: Denies any blood in urine or increased urinary frequency. SKIN: Denies pruitis. Denies rash. PHYSICAL EXAM: VITAL SIGNS: Reviewed GENERAL: Well-developed in no acute distress. HEENT: No sclera icterus. Extraocular movements grossly intact. Moist buccal mucosa. Head is atraumatic, normocephalic. No nasal drainage. ABDOMEN: Soft. Nondistended. Left inguinal hernia currently reduced and nontender NEUROLOGIC: Alert and oriented. Cranial nerves II through XII grossly intact. LABORATORY DATA: WBC is 11 Hgb 15.7 platelets 237 Sodium is 140 potassium is 4 creatinine 0.76 Lactic acid 0.8 LFTs normal IMAGING: computed tomography scan abdomen and pelvis that had shown chronic incarcerated left inguinal hernia containing small bowel and producing a mechanical small bowel obstruction. Dilated small bowel similar to old exam. There are small bladder calculi. Unchanged. Normal appendix. ASSESSMENT: 1. Chronic incarcerated left inguinal hernia containing small bowel and producing a mechanical small bowel obstruction noted on CAT scan. Hernia currently reduced. PLAN: -Patient scheduled for open repair of incarcerated left inguinal hernia with Dr. 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 Signing provider agrees with the documented findings, assessment, and plan of care. 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, Scoliosis, HIV, Acute arterial thrombosis requiring thrombectomy, migraines, "stroke or mini stroke-not sure what", History of Any Multi-Drug Resistant Organisms: None Reported Past Surgical History: Hernia Repair Additional Past Surgical History / Comment(s): RT INGUINAL HERNIA, UMBILICAL HERNIA, FEM POP BYPASS, biopsy of lymph node and growth in breast Past Anesthesia/Blood Transfusion Reactions: Blood Transfusion Reaction, Motion Sickness Additional Past Anesthesia/Blood Transfusion Reaction / Comment(s): PT CONTRACTED HIV FROM BLOOD TRANSFUSION 1977 Past Psychological History: Anxiety, Depression, PTSD Smoking Status: Current every day smoker Past Alcohol Use History: Rare Past Drug Use History: Marijuana - Past Family History none Family Medical History: No Reported History Additional Family Medical History / Comment(s): Patient reports he does not speak to his family and doesn't know their history. Medications and Allergies Home Medications Medication Instructions Recorded Confirmed Type Tiotropium 18 Mcg/Puff [Spiriva] 1 cap INHALATION RT-DAILY 10/06/17 10/22/22 History Elviteg/Cob/Emtri/Tenof Alafen 1 tab PO DAILY 03/31/18 10/22/22 History [Genvoya Tablet] Albuterol Sulfate [Proair Hfa] 2 puff INHALATION RT-Q6H PRN 06/22/18 10/22/22 History Rosuvastatin [Crestor] 20 mg PO DAILY 09/15/19 10/22/22 History Budesonide/Formoterol Fumarate 2 puff INHALATION RT-BID 10/22/22 10/22/22 History [Symbicort 160-4.5 Mcg Inhaler] Docusate [Colace] 100 mg PO TID 10/22/22 10/22/22 History Tamsulosin [Flomax] 0.4 mg PO DAILY 10/22/22 10/22/22 History Allergies Allergy/AdvReac Type Severity Reaction Status Date / Time buprenorphine [From Suboxone] AdvReac Nausea Verified 10/22/22 09:01 morphine AdvReac Nausea Verified 10/22/22 09:01 naloxone [From Suboxone] AdvReac Nausea Verified 10/22/22 09:01 Surgical - Exam Vital Signs Temp Pulse Resp BP Pulse Ox 97.5 F L 71 18 123/79 96 10/21/22 23:06 10/21/22 23:06 10/21/22 23:06 10/21/22 23:06 10/21/22 23:06 Results - Labs 10/21/22 23:25 10/21/22 23:25 Abnormal Lab Results - Last 24 Hours (Table) 10/21/22 10/21/22 10/22/22 Range/Units 23:25 23:25 03:52 WBC 11.0 H (3.8-10.6) k/uL Neutrophils # 8.5 H (1.3-7.7) k/uL Glucose 114 H (74-99) mg/dL Urine Blood Trace H (Negative) Urine RBC 7 H (0-5) /hpf Urine Bacteria Rare H (None) /hpf Urine Mucus Rare H (None) /hpf Diabetes panel 10/21/22 Range/Units 23:25 Sodium 140 (137-145) mmol/L Potassium 4.0 (3.5-5.1) mmol/L Chloride 105 (98-107) mmol/L Carbon Dioxide 28 (22-30) mmol/L BUN 14 (9-20) mg/dL Creatinine 0.76 (0.66-1.25) mg/dL Glucose 114 H (74-99) mg/dL Calcium 9.8 (8.4-10.2) mg/dL AST 25 (17-59) U/L ALT 25 (4-49) U/L Alkaline Phosphatase 59 (38-126) U/L Total Protein 8.1 (6.3-8.2) g/dL Albumin 4.7 (3.5-5.0) g/dL Calcium panel 10/21/22 Range/Units 23:25 Calcium 9.8 (8.4-10.2) mg/dL Albumin 4.7 (3.5-5.0) g/dL Pituitary panel 10/21/22 Range/Units 23:25 Sodium 140 (137-145) mmol/L Potassium 4.0 (3.5-5.1) mmol/L Chloride 105 (98-107) mmol/L Carbon Dioxide 28 (22-30) mmol/L BUN 14 (9-20) mg/dL Creatinine 0.76 (0.66-1.25) mg/dL Glucose 114 H (74-99) mg/dL Calcium 9.8 (8.4-10.2) mg/dL Adrenal panel 10/21/22 Range/Units 23:25 Sodium 140 (137-145) mmol/L Potassium 4.0 (3.5-5.1) mmol/L Chloride 105 (98-107) mmol/L Carbon Dioxide 28 (22-30) mmol/L BUN 14 (9-20) mg/dL Creatinine 0.76 (0.66-1.25) mg/dL Glucose 114 H (74-99) mg/dL Calcium 9.8 (8.4-10.2) mg/dL Total Bilirubin 0.7 (0.2-1.3) mg/dL AST 25 (17-59) U/L ALT 25 (4-49) U/L Alkaline Phosphatase 59 (38-126) U/L Total Protein 8.1 (6.3-8.2) g/dL Albumin 4.7 (3.5-5.0) g/dL
--- NOTE | 2022-10-22 11:01 | P.GSHP ---
History of Present Illness H&P Date: 10/22/22 Chief Complaint: Incarcerated left inguinal hernia 65-year-old male presents with abdominal bloating and left groin pain. Says his hernia has been bothering him. He was seen last fall with similar symptoms. He was seen in the office in August and was scheduled for laparoscopic repair in October. No vomiting. Pain somewhat improved after hernia was partially reduced. CAT scan shows small bowel within the hernia. Patient with chronic tobacco and marijuana use. As already stated he has no interest in stopping. - Review of Systems Comment: The patient denies any acute changes in vision or hearing, no dysphagia or odynophagia, no chest pain or shortness of breath, no dysuria or hematuria, no headache, no runny nose, no rectal bleeding or melena, no unexplained weight loss 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, Scoliosis, HIV, Acute arterial thrombosis requiring thrombectomy, migraines, "stroke or mini stroke-not sure what", History of Any Multi-Drug Resistant Organisms: None Reported Past Surgical History: Hernia Repair Additional Past Surgical History / Comment(s): RT INGUINAL HERNIA, UMBILICAL H ERNIA, FEM POP BYPASS, biopsy of lymph node and growth in breast Past Anesthesia/Blood Transfusion Reactions: Blood Transfusion Reaction, Motion Sickness Additional Past Anesthesia/Blood Transfusion Reaction / Comment(s): PT CONTRACTED HIV FROM BLOOD TRANSFUSION 1976 Past Psychological History: Anxiety, Depression, PTSD Smoking Status: Current every day smoker Past Alcohol Use History: Rare Past Drug Use History: Marijuana - Past Family History none Family Medical History: No Reported History Additional Family Medical History / Comment(s): Patient reports he does not speak to his family and doesn't know their history. Medications and Allergies Home Medications Medication Instructions Recorded Confirmed Type Tiotropium 18 Mcg/Puff [Spiriva] 1 cap INHALATION RT-DAILY 10/06/17 09/17/19 History Elviteg/Cob/Emtri/Tenof Alafen 1 tab PO AC-BRKFST 03/31/18 09/17/19 History [Genvoya Tablet] Albuterol Sulfate [Proair Hfa] 1 - 2 puff INHALATION RT-Q6H PRN 06/22/18 09/17/19 History Rosuvastatin [Crestor] 20 mg PO DAILY 09/15/19 09/17/19 History Budesonide/Formoterol Fumarate 2 puff INHALATION RT-BID 10/22/22 10/22/22 History [Symbicort 160-4.5 Mcg Inhaler] Docusate [Colace] 100 mg PO TID 10/22/22 10/22/22 History Tamsulosin [Flomax] 0.4 mg PO DAILY 10/22/22 10/22/22 History Allergies Allergy/AdvReac Type Severity Reaction Status Date / Time buprenorphine [From Suboxone] AdvReac Nausea Verified 10/22/22 09:01 morphine AdvReac Nausea Verified 10/22/22 09:01 naloxone [From Suboxone] AdvReac Nausea Verified 10/22/22 09:01 Surgical - Exam Vital Signs Temp Pulse Resp BP Pulse Ox 97.5 F L 71 18 123/79 96 10/21/22 23:06 10/21/22 23:06 10/21/22 23:06 10/21/22 23:06 10/21/22 23:06 Physical exam: General: Well-developed, well-nourished HEENT: Normocephalic, sclerae nonicteric Abdomen: Nontender, nondistended, partially reducible left inguinal hernia mildly tender Extremities: No edema Neuro: Alert and oriented Results - Labs 10/21/22 23:25 10/21/22 23:25 Abnormal Lab Results - Last 24 Hours (Table) 10/21/22 10/21/22 10/22/22 Range/Units 23:25 23:25 03:52 WBC 11.0 H (3.8-10.6) k/uL Neutrophils # 8.5 H (1.3-7.7) k/uL Glucose 114 H (74-99) mg/dL Urine Blood Trace H (Negative) Urine RBC 7 H (0-5) /hpf Urine Bacteria Rare H (None) /hpf Urine Mucus Rare H (None) /hpf Diabetes panel 10/21/22 Range/Units 23:25 Sodium 140 (137-145) mmol/L Potassium 4.0 (3.5-5.1) mmol/L Chloride 105 (98-107) mmol/L Carbon Dioxide 28 (22-30) mmol/L BUN 14 (9-20) mg/dL Creatinine 0.76 (0.66-1.25) mg/dL Glucose 114 H (74-99) mg/dL Calcium 9.8 (8.4-10.2) mg/dL AST 25 (17-59) U/L ALT 25 (4-49) U/L Alkaline Phosphatase 59 (38-126) U/L Total Protein 8.1 (6.3-8.2) g/dL Albumin 4.7 (3.5-5.0) g/dL Calcium panel 10/21/22 Range/Units 23:25 Calcium 9.8 (8.4-10.2) mg/dL Albumin 4.7 (3.5-5.0) g/dL Pituitary panel 10/21/22 Range/Units 23:25 Sodium 140 (137-145) mmol/L Potassium 4.0 (3.5-5.1) mmol/L Chloride 105 (98-107) mmol/L Carbon Dioxide 28 (22-30) mmol/L BUN 14 (9-20) mg/dL Creatinine 0.76 (0.66-1.25) mg/dL Glucose 114 H (74-99) mg/dL Calcium 9.8 (8.4-10.2) mg/dL Adrenal panel 10/21/22 Range/Units 23:25 Sodium 140 (137-145) mmol/L Potassium 4.0 (3.5-5.1) mmol/L Chloride 105 (98-107) mmol/L Carbon Dioxide 28 (22-30) mmol/L BUN 14 (9-20) mg/dL Creatinine 0.76 (0.66-1.25) mg/dL Glucose 114 H (74-99) mg/dL Calcium 9.8 (8.4-10.2) mg/dL Total Bilirubin 0.7 (0.2-1.3) mg/dL AST 25 (17-59) U/L ALT 25 (4-49) U/L Alkaline Phosphatase 59 (38-126) U/L Total Protein 8.1 (6.3-8.2) g/dL Albumin 4.7 (3.5-5.0) g/dL Assessment and Plan (1) Incarcerated left inguinal hernia Narrative/Plan: 62-year-old male with incarcerated left inguinal hernia. We'll proceed with o pen repair incarcerated left inguinal hernia with mesh at this time. Risks of bleeding, infection, recurrence, bladder and bowel injury, numbness, nerve injury, conversion to an open procedure were discussed with the patient. The patient understands and wishes to proceed. Current Visit: Yes Status: Acute Code(s): K40.30 - UNIL INGUINAL HERNIA, W OBST, W/O GANGR, NOT SPCF RECUR SNOMED Code(s): 463079181
[2022-10-22] MEDS ORDERED: LACTATED RINGERS 1,000 ML IV ONE (13:55)
[2022-10-22] MEDS ORDERED: HEPARIN SODIUM,PORCINE/PF 5,000 UNIT/0.5 ML SYRINGE SQ ONE (13:55)
[2022-10-22] MEDS ORDERED: HEPARIN SODIUM,PORCINE 5,000 UNIT/ML 1 ML VIAL SQ ONE (13:56)
[2022-10-22] MEDS ORDERED: fentaNYL (PF) 50 MCG/ML 2 ML AMP ONE (15:50)
[2022-10-22] MEDS ORDERED: LIDOCAINE 2% INJ 20 MG/ML (2 ML VIAL) ONE (15:50)
[2022-10-22] MEDS ORDERED: MIDAZOLAM 2 MG/2 ML VIAL ONE (15:50)
[2022-10-22] MEDS ORDERED: ROCURONIUM 10 MG/ML (5 ML VIAL) IV ONE (15:50)
[2022-10-22] MEDS ORDERED: NEOSTIGMINE 1 MG/ML 10 ML VIAL ONE (15:50)
[2022-10-22] MEDS ORDERED: PROPOFOL 10 MG/ML 20 ML VIAL IV ONE (15:50)
[2022-10-22] MEDS ORDERED: PHENYLEPHRINE-0.9% NACL SYG 1,000 MCG/10 ML SYRINGE ONE (15:50)
[2022-10-22] MEDS ORDERED: GLYCOPYRROLATE 0.2 MG/ML 2 ML VIAL ONE (15:50)
[2022-10-22] MEDS ORDERED: SUCCINYLCHOLINE CHLORIDE 200 MG/10 ML VIAL IV ONE (15:50)
[2022-10-22] MEDS ORDERED: ePHEDrine 50 MG/ML 1 ML VIAL ONE (15:50)
[2022-10-22] MEDS ORDERED: BUPIVACAINE (PF) 0.25% 30 ML VIAL SQ ONE ×2 (16:23→16:57)
[2022-10-22] MEDS ORDERED: HYDROmorphone 0.5 MG/0.5 ML SYRINGE IVP PRN (17:06)
[2022-10-22] MEDS ORDERED: HYDROmorphone 1 MG/ML 1 ML SYRINGE IVP PRN (17:06)
[2022-10-22] MEDS ORDERED: ACETAMINOPHEN TAB 325 MG TAB PO PRN (17:06)
[2022-10-22] MEDS ORDERED: HYDROcodone/APAP 5-325MG 1 EACH TAB PO PRN ×2 (17:06)
--- NOTE | 2022-10-22 17:11 | P.OP ---
Date of Procedure: 10/22/22 Procedure(s) Performed: PREOPERATIVE DIAGNOSIS: Incarcerated left inguinal hernia POSTOPERATIVE DIAGNOSIS: Incarcerated left femoral hernia, left inguinal cord lipoma PROCEDURE: Open repair incarcerated left femoral hernia with mesh, excision left inguinal cord lipoma SURGEON: Dr. Cohen ANESTHESIA: General OPERATIVE PROCEDURE DETAILS: Patient was placed in the operating table in the supine position and placed under general anesthesia. An oblique incision was made in the left groin. Dissection down through the subcutaneous tissues took place using electrocautery. The inguinal ligament was easily identified and the hernia was noted to come from the femoral canal. This was carefully dissected c ircumferentially and able to be reduced fully after lightly dilating the femoral canal track. The contents appeared to be preperitoneal fat. No visible bowel was seen. Once the contents were fully reduced a small piece of flat Prolene mesh was cut and rolled into the shape of a cylinder. This was sutured proximally and distally. This was then sutured anteriorly to inguinal ointment posteriorly to Raúl's ligament and medially to the arcuate ligament. The sutures were placed using 0 silk sutures. This effectively closed the femoral canal nicely. This did not appear to be impinging on the femoral vein. There was some bulkiness to the inguinal region. The external oblique fascia was incised using a scalpel. This opening was lengthened using the Metzenbaum scissors. The spermatic cord was encircled with a Muldrow drain. The structures were identified and preserved. Careful dissection revealed a cord lipoma that was excised after ligating proximally with a 3-0 silk stitch. There was no hernia sac or direct hernia seen. The external oblique was then reapproximated using a running 2-0 Vicryl suture. The subcutaneous tissues were reapproximated using a 3-0 Vicryl sutures. The skin was closed using 4-0 Monocryl sutures. Steri-Strips and sterile dressings were then applied. TYPE OF MESH USED: Prolene LOCATION OF MESH: Femoral canal as plug FIXATION: 0 silk interrupted PREOPERATIVE DISCUSSION ON SMOKING CESSASTION: Yes PREOPERATIVE DISCUSSION ON MORBID OBESITY: Yes PREOPERATIVE DISCUSSION ON APPROPRIATE USE OF NARCOTIC USE: Yes PREOPERATIVE EDUCATION: Multi Modal, Smoking Cessation and Weight Loss with BMI over 35. DISPOSITION: Stable to recovery room
[2022-10-22 17:25] VITALS: RESP 16
[2022-10-22 18:23] VITALS: BP 125/82; PULSE 72; TEMP 97.7
[2022-10-22] MEDS ORDERED: DOCUSATE 100 MG CAP PO SCH (21:00)
[2022-10-23] MEDS ORDERED: HEPARIN SODIUM,PORCINE/PF 5,000 UNIT/0.5 ML SYRINGE SQ SCH
== END 2022-10-22 18:48 | disposition left against medical advice (07) | DRG 351 ==
LOC: EC 22:39 → 5NMEDONC 10-22 04:43 → 4SSUR 10-22 14:36
PROVIDERS: ADMIT Surgery; ATTEND Surgery
PROC: 0VBF0ZZ Excision of Right Spermatic Cord, Open Approach (ICD-10-PCS; principal; 2022-10-22 14:15)
PROC: 0YU80JZ Supplement Left Femoral Region with Synthetic Substitute, Open Approach (ICD-10-PCS; principal; 2022-10-22 14:15)
DX: K41.30 Unilateral femoral hernia, with obstruction, without gangrene, not specified as recurrent (principal); K56.699 Other intestinal obstruction unspecified as to partial versus complete obstruction; D17.6 Benign lipomatous neoplasm of spermatic cord; F43.10 Post-traumatic stress disorder, unspecified; G40.909 Epilepsy, unspecified, not intractable, without status epilepticus; J44.9 Chronic obstructive pulmonary disease, unspecified; I10 Essential (primary) hypertension; Z28.310 Unvaccinated for COVID-19; N42.9 Disorder of prostate, unspecified; Z28.21 Immunization not carried out because of patient refusal; G62.9 Polyneuropathy, unspecified; M19.90 Unspecified osteoarthritis, unspecified site; K44.9 Diaphragmatic hernia without obstruction or gangrene; G43.909 Migraine, unspecified, not intractable, without status migrainosus; M10.9 Gout, unspecified; M41.9 Scoliosis, unspecified; Z79.899 Other long term (current) drug therapy; Z79.51 Long term (current) use of inhaled steroids; Z86.73 Personal history of transient ischemic attack (TIA), and cerebral infarction without residual deficits; Z87.01 Personal history of pneumonia (recurrent); Z88.5 Allergy status to narcotic agent; Z86.718 Personal history of other venous thrombosis and embolism
CPT/HCPCS: 36415; 74176; 80053; 81001; 83605; 85025; 96361; 96374; 99285

== ENCOUNTER 2023-02-26 23:25 | Emergency (ER) | payer MEDICARE, OTHER ==
[2023-02-26 23:39] VITALS: BP 144/74; PULSE 77; RESP 20; TEMP 97.9
--- NOTE | 2023-02-27 03:19 | ED ---
General Adult HPI - General Chief complaint: Extremity Problem,Nontraumatic Stated complaint: Leg Pain Time Seen by Provider: 02/27/23 01:28 Source: patient, EMS Mode of arrival: EMS Limitations: no limitations - History of Present Illness Initial comments: This is a 62-year-old male with a past mental history including previous arterial vascular disease presents to the [facility] department via EMS for leg pain over his left leg. The patient is an overall poor historian and complained about multiple different things and multiple issues at home. The patient stated that he has had pain in the left leg over the last 1 week and stated that "I'm having so much pain and no bruits radiating for me starting to get this taken care of." The patient stated that he had surgery recently on this left leg and now it is painful throughout the entire leg. The patient stated "I don't have a surgeon don't have follow-up my primary care physician does shit for me." The patient did state that he had home care at home 4 days a week but stated that they haven't done anything for him. The patient himself denied any other acute pain or complaints at this time. - Related Data Home Medications Medication Instructions Recorded Confirmed Tiotropium 18 Mcg/Puff [Spiriva] 1 cap INHALATION RT-DAILY 10/06/17 10/22/22 Elviteg/Cob/Emtri/Tenof Alafen 1 tab PO DAILY 03/31/18 10/22/22 [Genvoya Tablet] Albuterol Sulfate [Proair Hfa] 2 puff INHALATION RT-Q6H PRN 06/22/18 10/22/22 Rosuvastatin [Crestor] 20 mg PO DAILY 09/15/19 10/22/22 Budesonide/Formoterol Fumarate 2 puff INHALATION RT-BID 10/22/22 10/22/22 [Symbicort 160-4.5 Mcg Inhaler] Docusate [Colace] 100 mg PO TID 10/22/22 10/22/22 Tamsulosin [Flomax] 0.4 mg PO DAILY 10/22/22 10/22/22 Allergies Allergy/AdvReac Type Severity Reaction Status Date / Time buprenorphine [From Suboxone] AdvReac Nausea Verified 02/26/23 23:38 morphine AdvReac Nausea Verified 02/26/23 23:38 naloxone [From Suboxone] AdvReac Nausea Verified 02/26/23 23:38 Review of Systems ROS Statement: Those systems with pertinent positive or pertinent negative responses have been documented in the HPI. ROS Other: All systems not noted in ROS Statement are negative. 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, Scoliosis, HIV, Acute arterial thrombosis requiring thrombectomy, migraines, "stroke or mini stroke-not sure what", History of Any Multi-Drug Resistant Organisms: None Reported Past Surgical History: Hernia Repair Additional Past Surgical History / Comment(s): RT INGUINAL HERNIA, UMBILICAL HERNIA, FEM POP BYPASS, biopsy of lymph node and growth in breast Past Anesthesia/Blood Transfusion Reactions: Blood Transfusion Reaction, Motion Sickness Additional Past Anesthesia/Blood Transfusion Reaction / Comment(s): PT CONTRACTED HIV FROM BLOOD TRANSFUSION 1976 Past Psychological History: Anxiety, Depression, PTSD Smoking Status: Current every day smoker Past Alcohol Use History: Rare Past Drug Use History: Marijuana - Past Family History none Family Medical History: No Reported History Additional Family Medical History / Comment(s): Patient reports he does not speak to his family and doesn't know their history. General Exam Limitations: no limitations General appearance: alert, in no apparent distress Head exam: Present: atraumatic, normocephalic, normal inspection Eye exam: Present: normal appearance, PERRL Pupils: Present: normal accommodation ENT exam: Present: normal exam, normal oropharynx, mucous membranes moist Neck exam: Present: normal inspection, full ROM Respiratory exam: Present: normal lung sounds bilaterally Cardiovascular Exam: Present: regular rate, normal rhythm, normal heart sounds GI/Abdominal exam: Present: soft, normal bowel sounds Extremities exam: Present: normal inspection, full ROM, other (Pulses present in the bilateral lower extremities) Back exam: Present: normal inspection, full ROM Neurological exam: Present: alert, oriented X3, CN II-XII intact Psychiatric exam: Present: normal affect, normal mood Skin exam: Present: warm, dry Course Vital Signs 02/26/23 23:36 Temperature 97.9 F Pulse Rate 77 Respiratory 20 Rate Blood Pressure 144/74 O2 Sat by Pulse 99 Oximetry Medical Decision Making - Medical Decision Making Was pt. sent in by a medical professional or institution (JO Patel, FUEL INJECTION SERVICER, urgent care, hospital, or intermediate...) When possible be specific @ -No Did you speak to anyone other than the patient for history (EMS, parent, family, police, friend...)? What history was obtained from this source @ -No Did you review nursing and triage notes (agree or disagree)? Why? @ -I reviewed and agree with nursing and triage notes Were old charts reviewed (outside hosp., previous admission, EMS record, old EKG, old radiological studies, urgent care reports/EKG's, intermediate records)? Report findings @ -No old charts were reviewed Differential Diagnosis (chest pain, altered mental status, abdominal pain women, abdominal pain men, vaginal bleeding, weakness, fever, dyspnea, syncope, headache, dizziness, GI bleed, back pain, seizure, CVA, palpatations, mental health)? @ -Peripheral vascular disease, medical noncompliance, muscle strain EKG interpreted by me (3pts min.). @ -None X-rays interpreted by me (1pt min.). @ -None done CT interpreted by me (1pt min.). @ -None done U/S interpreted by me (1pt. min.). @ -None done What testing was considered but not performed or refused? (CT, X-rays, U/S, labs)? Why? @ -None What meds were considered but not given or refused? Why? @ -None Did you discuss the management of the patient with other professionals (professionals i.e. JO Patel, FUEL INJECTION SERVICER, lab, RT, psych nurse, social media editor, telephone lines repairer, teacher, youth corrections officer, senior case manager)? Give summary @ -No Was smoking cessation discussed for >3mins.? @ -Yes Was critical care preformed (if so, how long)? @ -No Were there social determinants of health that impacted care today? How? (Homelessness, low income, unemployed, alcoholism, drug addiction, transportation, low edu. Level, literacy, decrease access to med. care, skilled nursing, rehab)? @ -No Was there de-escalation of care discussed even if they declined (Discuss DNR or withdrawal of care, Hospice)? DNR status @ -No What co-morbidities impacted this encounter? (DM, HTN, Smoking, COPD, CAD, Cancer, CVA, ARF, Chemo, Hep., AIDS, mental health diagnosis, sleep apnea, morbid obesity)? @ -Peripheral vascular disease, hypertension Was patient admitted / discharged? Hospital course, mention meds given and route, prescriptions, significant lab abnormalities, going to OR and other pertinent info. @ -The patient was seen and evaluated emergency department. Physical exam, the patient was resting in bed without any acute distress. The patient was ambulating throughout the emergency department prior to my evaluation. The p paulina complained of multiple different things including left leg pain however he had no follow-up with his surgeon nor any PCP because "they don't do shit for me." The patient was demanding to be transferred to [facility] to get "things taking care of." The patient continued to remain stable and I did state that the patient had no abnormal findings requiring transfer at this time. The patient had good pulses in the bilateral lower extremities and his lower extremities had equal temperature. The patient was advised to follow-up with his primary care physician and surgeon for continued evaluation and management and the patient continued to argue with me about this. The patient then stated I just "want my Johnson catheter bag changed and checked for infection." I did agree to this however after 5 minutes of me being in the room, the patient walks throughout the emergency department and out of the emergency department because "I want water and coffee." The patient was given water in the waiting room without speaking with anybody however became aggressive with staff and walked out of the waiting room AGAINST MEDICAL ADVICE without getting discharge paperwork or having any testing performed. The patient was stable as the patient left AGAINST MEDICAL ADVICE. Undiagnosed new problem with uncertain prognosis? @ -No Drug Therapy requiring intensive monitoring for toxicity (Heparin, Nitro, Insulin, Cardizem)? @ -No Were any procedures done? @ -No Diagnosis/symptom? @ -Chronic left leg pain Acute, or Chronic, or Acute on Chronic? @ -Chronic Uncomplicated (without systemic symptoms) or Complicated (systemic symptoms)? @ -Uncomplicated Side effects of treatment? @ -No Exacerbation, Progression, or Severe Exacerbation? @ -No Poses a threat to life or bodily function? How? (Chest pain, [place], [place], pneumonia, PE, COPD, DKA, ARF, appy, cholecystitis, CVA, Diverticulitis, Homicidal, Suicidal, threat to staff... and all critical care pts) @ -No Disposition Clinical Impression: Peripheral vascular disease Disposition: LEFT AGAINST MEDICAL ADVICE Condition: Stable Is patient prescribed a controlled substance at d/c from ED?: No Referrals: Kay Jha [Primary Care Provider] - 1-2 days Time of Disposition: 02:30
== END 2023-02-27 02:58 | disposition left against medical advice (07) ==
LOC: EC 23:25
DX: I73.9 Peripheral vascular disease, unspecified (principal); J44.9 Chronic obstructive pulmonary disease, unspecified; M19.90 Unspecified osteoarthritis, unspecified site; E78.5 Hyperlipidemia, unspecified; F41.9 Anxiety disorder, unspecified; F32.A Depression, unspecified; F17.200 Nicotine dependence, unspecified, uncomplicated; F12.90 Cannabis use, unspecified, uncomplicated; Z79.51 Long term (current) use of inhaled steroids; Z79.899 Other long term (current) drug therapy; Z88.5 Allergy status to narcotic agent; Z88.8 Allergy status to other drugs, medicaments and biological substances; Z53.29 Procedure and treatment not carried out because of patient's decision for other reasons
CPT/HCPCS: 51702; 99284

== ENCOUNTER 2023-09-23 12:19 | Emergency (ER) | payer MEDICARE, OTHER ==
--- NOTE | 2023-09-23 12:49 | ED ---
Psych HPI - General Source: patient, RN notes reviewed <Jen Sewell - Last Filed: 09/23/23 12:48> - General Source: patient, police, RN notes reviewed Mode of arrival: ambulatory Limitations: no limitations <Jin Bravo - Last Filed: 09/23/23 15:24> <Kirt Dunlap - Last Filed: 09/23/23 16:50> - General Stated Complaint: Petitioned-Mental Health Time Seen by Provider: 09/23/23 12:48 - History of Present Illness Initial Comments: Patient is a 63-year-old male presenting to the ER with a chief complaint of suicide ideation. Patient states she is ready to take off the street drugs to kill himself. Patient denies any other complaints. Patient denies any homicidal thoughts. Patient denies any drugs or alcohol use today. (Jen Sewell) 63-year-old male presents emergency Department with police for psychiatric evaluation. Patient states that he is having increasing depression, pain is causing him to be suicidal. Patient states that he can get any drugs that he needs to get. He denies any physical complaints other chronic pain. Denies homicidal ideation denies any alcohol use. (Jin Bravo) - Related Data Home Medications Medication Instructions Recorded Confirmed Tiotropium 18 Mcg/Puff [Spiriva] 1 cap INHALATION RT-DAILY 10/06/17 09/23/23 Elviteg/Cob/Emtri/Tenof Alafen 1 tab PO DAILY 03/31/18 09/23/23 [Genvoya Tablet] Albuterol Sulfate [Proair Hfa] 2 puff INHALATION RT-Q6H PRN 06/22/18 09/23/23 Rosuvastatin [Crestor] 20 mg PO DAILY 09/15/19 09/23/23 Budesonide/Formoterol Fumarate 2 puff INHALATION RT-BID 10/22/22 09/23/23 [Symbicort 160-4.5 Mcg Inhaler] Docusate [Colace] 100 mg PO DAILY 10/22/22 09/23/23 Tamsulosin [Flomax] 0.4 mg PO DAILY 10/22/22 09/23/23 Apixaban [Eliquis] 2.5 mg PO BID 09/23/23 09/23/23 Cholecalciferol [Vitamin D3 (25 50 mcg PO DAILY 09/23/23 09/23/23 Mcg = 1000 Iu)] Cyanocobalamin (Vitamin B-12) 1,000 mcg PO DAILY 09/23/23 09/23/23 [Vitamin B-12] HYDROcodone/APAP 5-325MG [[place] 1 tab PO BID 09/23/23 09/23/23 5-325] Lactose-Reduced Food [Ensure Plus 237 ml PO DAILY 09/23/23 09/23/23 High Protein] Multivitamins, Thera [Multivitamin 1 tab PO DAILY 09/23/23 09/23/23 (formulary)] Nitrofurantoin Monohyd/M-Cryst 100 mg PO DAILY 09/23/23 09/23/23 [Macrobid] Ondansetron Odt [Zofran Odt] 4 - 8 mg PO BID PRN 09/23/23 09/23/23 Oxybutynin Chloride [oxyBUTYnin 10 mg PO DAILY 09/23/23 09/23/23 chloride ER] Prasugrel [Effient] 10 mg PO DAILY 09/23/23 09/23/23 methocarbamoL [Robaxin] 500 mg PO Q8H PRN 09/23/23 09/23/23 polyethylene glycoL 3350 [Miralax] 17 gm PO DAILY PRN 09/23/23 09/23/23 Allergies Allergy/AdvReac Type Severity Reaction Status Date / Time buprenorphine [From Suboxone] AdvReac Nausea Verified 09/23/23 15:32 morphine AdvReac Nausea Verified 09/23/23 15:32 naloxone [From Suboxone] AdvReac Nausea Verified 09/23/23 15:32 Review of Systems ROS Other: All systems not noted in ROS Statement are negative. <Jen Sewell - Last Filed: 09/23/23 12:48> ROS Other: All systems not noted in ROS Statement are negative. <Jin Bravo - Last Filed: 09/23/23 15:24> ROS Other: All systems not noted in ROS Statement are negative. <Kirt Dunlap - Last Filed: 09/23/23 16:50> ROS Statement: Those systems with pertinent positive or pertinent negative responses have been documented in the HPI. 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, Scoliosis, HIV, Acute arterial thrombosis requiring thrombectomy, migraines, "stroke or mini stroke-not sure what", History of Any Multi-Drug Resistant Organisms: None Reported Past Surgical History: Hernia Repair Additional Past Surgical History / Comment(s): RT INGUINAL HERNIA, UMBILICAL HERNIA, FEM POP BYPASS, biopsy of lymph node and growth in breast Past Anesthesia/Blood Transfusion Reactions: Blood Transfusion Reaction, Motion Sickness Additional Past Anesthesia/Blood Transfusion Reaction / Comment(s): PT CONTRACTED HIV FROM BLOOD TRANSFUSION 1976 Past Psychological History: Anxiety, Depression, PTSD Smoking Status: Current every day smoker Past Alcohol Use History: Rare Past Drug Use History: Marijuana - Past Family History none Family Medical History: No Reported History Additional Family Medical History / Comment(s): Patient reports he does not speak to his family and doesn't know their history. <Jen Sewell - Last Filed: 09/23/23 12:48> General Exam <Jen Sewell - Last Filed: 09/23/23 12:48> General appearance: alert, in no apparent distress Head exam: Present: atraumatic, normocephalic, normal inspection Eye exam: Present: normal appearance, PERRL, EOMI. Absent: scleral icterus, conjunctival injection, periorbital swelling ENT exam: Present: normal exam, mucous membranes moist Neck exam: Present: normal inspection, full ROM. Absent: tenderness, meningismus, lymphadenopathy Respiratory exam: Present: normal lung sounds bilaterally. Absent: respiratory distress, wheezes, rales, rhonchi, stridor Cardiovascular Exam: Present: regular rate, normal rhythm, normal heart sounds. Absent: systolic murmur, diastolic murmur, rubs, gallop, clicks GI/Abdominal exam: Present: soft, normal bowel sounds. Absent: distended, tenderness, guarding, rebound, rigid Neurological exam: Present: alert Psychiatric exam: Present: depressed <Jin Bravo - Last Filed: 09/23/23 15:24> - General Exam Comments Initial Comments: Visual Physical Exam Vital signs reviewed General: Well-appearing, nontoxic, no acute distress. Head: Normocephalic, atraumatic Eyes: PERRLA, EOMI ENT: Airway patent Chest: Nonlabored breathing Skin: No visual rash, normal skin tone Neuro: Alert and oriented 3 Musculoskeletal: No gross abnormalities (Jen Sewell) Course Vital Signs 09/23/23 13:37 Temperature 98.6 F Pulse Rate 63 Respiratory 18 Rate Blood Pressure 138/79 O2 Sat by Pulse 96 Oximetry Medical Decision Making <Jen Sewell - Last Filed: 09/23/23 12:48> <Kirt Dunlap - Last Filed: 09/23/23 16:50> - Medical Decision Making I performed the quick note portion of the exam. Electronically signed by eJn Sewell PA-C (Jen Sewell) Was pt. sent in by a medical professional or institution (JO Patel, MACHINING SUPERVISOR, urgent care, hospital, or [facility]...) When possible be specific @ -No Did you speak to anyone other than the patient for history (EMS, parent, family, police, friend...)? What history was obtained from this source @ -No Did you review nursing and triage notes (agree or disagree)? Why? @ -I reviewed and agree with nursing and triage notes Were old charts reviewed (outside hosp., previous admission, EMS record, old EKG, old radiological studies, urgent care reports/EKG's, [facility] records)? Report findings @ -No old charts were reviewed Differential Diagnosis (chest pain, altered mental status, abdominal pain women, abdominal pain men, vaginal bleeding, weakness, fever, dyspnea, syncope, headache, dizziness, GI bleed, back pain, seizure, CVA, palpatations, mental health, musculoskeletal)? @ -Differential Mental Health Depression, anxiety, bipolar, psychosis, schizophrenia, borderline personality, situational depression, adjustment disorder, behavioral disorder, brain tumor, malingering, substance abuse, encephalopathy, medication reaction, dementia, hypothyroidism, degenerative neurologic disorder, lupus.... This is not meant to be all-inclusive list EKG interpreted by me (3pts min.). @ -As above X-rays interpreted by me (1pt min.). @ -None done CT interpreted by me (1pt min.). @ -None done U/S interpreted by me (1pt. min.). @ -None done What testing was considered but not performed or refused? (CT, X-rays, U/S, labs)? Why? @ -None What meds were considered but not given or refused? Why? @ -None Did you discuss the management of the patient with other professionals (professionals i.e. , PA, MACHINING SUPERVISOR, lab, RT, psych nurse, home health care social worker, doctor of optometry, teacher, property utilization officer, caser)? Give summary @ -I did speak with up with mental health with plans for transfer for mental health care Was smoking cessation discussed for >3mins.? @ -No Was critical care preformed (if so, how long)? @ -No Were there social determinants of health that impacted care today? How? (Homelessness, low income, unemployed, alcoholism, drug addiction, transportation, low edu. Level, literacy, decrease access to med. care, [facility], rehab)? @ -No Was there de-escalation of care discussed even if they declined (Discuss DNR or withdrawal of care, Hospice)? DNR status @ -No What co-morbidities impacted this encounter? (DM, HTN, Smoking, COPD, CAD, Cancer, CVA, ARF, Chemo, Hep., AIDS, mental health diagnosis, sleep apnea, morbid obesity)? @ -None Was patient admitted / discharged? Hospital course, mention meds given and route, prescriptions, significant lab abnormalities, going to OR and other pertinent info. @ -Patient reevaluated by myself. Patient omits to being depressed with suicidal thoughts and plan. Patient not sleeping well. Patient not eating well. Positive clinical certificate completed. Undiagnosed new problem with uncertain prognosis? @ -No Drug Therapy requiring intensive monitoring for toxicity (Heparin, Nitro, Insulin, Cardizem)? @ -No Were any procedures done? @ -No Diagnosis/symptom? @ -Depression, suicidal ideation Acute, or Chronic, or Acute on Chronic? @ -Acute Uncomplicated (without systemic symptoms) or Complicated (systemic symptoms)? @ -default Side effects of treatment? @ -No Exacerbation, Progression, or Severe Exacerbation? @ -No Poses a threat to life or bodily function? How? (Chest pain, [place], [place], pneumonia, PE, COPD, DKA, ARF, appy, cholecystitis, CVA, Diverticulitis, Homicidal, Suicida l, threat to staff... and all critical care pts) @ -No (Kirt Dunlap) - Lab Data Lab Results 09/23/23 Range/Units 14:54 Urine Opiates Screen Not Detected (NotDetected) Ur Oxycodone Screen Not Detected (NotDetected) Urine Methadone Screen Not Detected (NotDetected) Ur Barbiturates Screen Not Detected (NotDetected) U Tricyclic Antidepress Not Detected (NotDetected) Ur Phencyclidine Scrn Not Detected (NotDetected) Ur Amphetamines Screen Not Detected (NotDetected) U Methamphetamines Scrn Not Detected (NotDetected) U Benzodiazepines Scrn Not Detected (NotDetected) Urine Cocaine Screen Not Detected (NotDetected) U Marijuana (THC) Screen Detected H (NotDetected) Ur Drug Screen Comment SEE COMMENT Disposition <Jen Sewell - Last Filed: 09/23/23 12:48> <Jin Bravo - Last Filed: 09/23/23 15:24> Is patient prescribed a controlled substance at d/c from ED?: No Time of Disposition: 16:50 <Kirt Dunlap - Last Filed: 09/23/23 16:50> Clinical Impression: Depression, Suicidal ideation Disposition: TRANSFER TO PSYCH HOSP/UNIT Referrals: Braden Randhawa DO [Primary Care Provider] - 1-2 days
[2023-09-23 15:13] LABS: Amphetamine Screen,Urine Not Detected (NotDetected); Barbiturate Screen,Urine Not Detected (NotDetected); Benzodiazepines Screen,Urine Not Detected (NotDetected); Cocaine Screen,Urine Not Detected (NotDetected); Methadone Screen, Urine Not Detected (NotDetected); Opiate Screen,Urine Not Detected (NotDetected); Oxycodone Screen, Urine Not Detected (NotDetected); Phencyclidine Screen,Urine Not Detected (NotDetected); Tricyclic Antidepressant,Urine Not Detected (NotDetected); Urn Cannabinoid Scrn Detected (NotDetected)
[2023-09-23] MEDS ORDERED: NICOTINE 21MG/24HR PATCH TRANSDERM STA (15:31)
[2023-09-23] MEDS ORDERED: LORazepam 2 MG/ML INJ IM STA (19:45)
[2023-09-24 00:45] LABS: ALT 29 U/L (4-49); AST 27 U/L (17-59); African American GFR (CKD) >90 (>60 ml/min/1.73 sqM); Alkaline Phosphatase 64 U/L (38-126); Anion Gap 9 mmol/L; Blood Urea Nitrogen 18 mg/dL (9-20); Calcium 9.7 mg/dL (8.4-10.2); Carbon Dioxide 26 mmol/L (22-30); Chloride 105 mmol/L (98-107); Glucose 101 mg/dL (74-99); Non-African American GFR(CKD) >90 (>60 ml/min/1.73 sqM); Potassium 3.8 mmol/L (3.5-5.1); Sodium 140 mmol/L (137-145); Total Bilirubin 0.5 mg/dL (0.2-1.3); Total Protein 7.3 g/dL (6.3-8.2)
[2023-09-24 00:50] LABS: Basophils % (A) 1 %; Eosinophils # (A) 0.1 k/uL (0-0.7); Eosinophils % (A) 2 %; HCT 42.1 % (39.0-53.0); HGB 14.1 gm/dL (13.0-17.5); Lymphocytes # (A) 2.8 k/uL (1.0-4.8); Lymphocytes % (A) 36 %; MCH 32.4 pg (25.0-35.0); MCHC 33.6 g/dL (31.0-37.0); MCV 96.5 fL (80.0-100.0); Mean Platelet Volume 7.5; Monocytes # (A) 0.5 k/uL (0-1.0); Monocytes % (A) 6 %; Neutrophils % (A) 51 %; Platelet Count 264 k/uL (150-450); RBC 4.37 m/uL (4.30-5.90); RDW 12.5 % (11.5-15.5); WBC 7.8 k/uL (3.8-10.6)
[2023-09-24 01:09] LABS: Appearance,Urine Turbid (Clear); Bacteria,Urine Moderate /hpf; Bilirubin,Urine Negative (Negative); Blood,Urine Moderate (Negative); Calcium Oxalate Crystals,Urine Many /hpf; Color,Urine Yellow; Glucose,Urine (UA) Negative (Negative); Hyaline Casts,Urine 51 /lpf (0-2); Ketones,Urine Negative (Negative); Leukocyte Esterase,Urine Large (Negative); Mucus,Urine Many /hpf; Nitrite,Urine Negative (Negative); PH, Urine 6.5 (5.0-8.0); Protein,Urine 1+ (Negative); RBC,Urine >182 /hpf (0-5); Squamous Epithelial Cell,Urine 1 /hpf (0-4); Urobilinogen,Urine <2.0 mg/dL (<2.0); WBC,Urine >182 /hpf (0-5)
[2023-09-24 01:12] LABS: Amphetamine Screen,Urine Not Detected (NotDetected); Barbiturate Screen,Urine Not Detected (NotDetected); Benzodiazepines Screen,Urine Not Detected (NotDetected); Cocaine Screen,Urine Not Detected (NotDetected); Methadone Screen, Urine Not Detected (NotDetected); Opiate Screen,Urine Not Detected (NotDetected); Oxycodone Screen, Urine Not Detected (NotDetected); Phencyclidine Screen,Urine Not Detected (NotDetected); Tricyclic Antidepressant,Urine Not Detected (NotDetected); Urn Cannabinoid Scrn Detected (NotDetected)
[2023-09-24] MEDS ORDERED: LORazepam 1 MG TAB PO STA (01:55)
[2023-09-24] MEDS ORDERED: TAMSULOSIN 0.4 MG CAP.ER.24H PO STA (03:32)
[2023-09-24 08:23] VITALS: RESP 18
[2023-09-24] MEDS ORDERED: ALBUTEROL NEBULIZED 2.5 MG/3 ML INHALATION PRN (09:52)
[2023-09-24] MEDS ORDERED: LORazepam 1 MG TAB PO PRN (09:55)
[2023-09-24] MEDS ORDERED: NICOTINE 21MG/24HR PATCH TRANSDERM STA (14:57)
[2023-09-24 16:28] LABS: Appearance,Urine Cloudy (Clear); Bacteria,Urine Rare /hpf; Bilirubin,Urine Negative (Negative); Blood,Urine Small (Negative); Color,Urine Light Yellow; Glucose,Urine (UA) Negative (Negative); Ketones,Urine Negative (Negative); Leukocyte Esterase,Urine Large (Negative); Nitrite,Urine Negative (Negative); PH, Urine 7.5 (5.0-8.0); Protein,Urine Trace (Negative); RBC,Urine 7 /hpf (0-5); Specific Gravity,Urine 1.011 (1.001-1.035); Squamous Epithelial Cell,Urine <1 /hpf (0-4); Urobilinogen,Urine <2.0 mg/dL (<2.0); WBC,Urine >182 /hpf (0-5)
[2023-09-24] MEDS: ALBUTEROL HFA INHALER INHALATION PRN (20:20)
[2023-09-24] MEDS: CEPHALEXIN 500 MG CAP PO SCH (20:32)
[2023-09-24] MEDS: APIXABAN 2.5 MG TABLET PO SCH (20:36)
[2023-09-24] MEDS: SYMBICORT 160-4.5 MCG INHALER INHALATION SCH (22:07)
[2023-09-25] MEDS ORDERED: CHOLECALCIFEROL 25 MCG (1000 IU) TABLET PO SCH (09:00)
[2023-09-25] MEDS ORDERED: ATORVASTATIN 40 MG TAB PO SCH (09:00)
[2023-09-25] MEDS ORDERED: TAMSULOSIN 0.4 MG CAP.ER.24H PO SCH (09:00)
[2023-09-25] MEDS ORDERED: OXYBUTYNIN 10 MG TAB.ER.24 PO SCH (09:00)
[2023-09-25] MEDS ORDERED: DOCUSATE 100 MG CAP PO SCH (09:00)
[2023-09-25] MEDS ORDERED: PRASUGREL 10 MG TAB PO SCH (09:00)
[2023-09-25] MEDS ORDERED: CYANOCOBALAMIN 500 MCG TAB PO SCH (09:00)
[2023-09-25] MEDS: APIXABAN 2.5 MG TABLET PO SCH ×2 (09:59→21:45)
[2023-09-25] MEDS: CEPHALEXIN 500 MG CAP PO SCH ×2 (10:00→21:45)
[2023-09-25] MEDS: SYMBICORT 160-4.5 MCG INHALER INHALATION SCH ×2 (10:06→20:29)
[2023-09-25] MEDS: IPRATROPIUM 0.5 MG/2.5 ML NEBU INHALATION SCH ×3 (10:06→20:24)
[2023-09-25 11:28] LABS: T4/T8 Ratio (CD4:CD8) 0.5 (1.0-3.7)
[2023-09-25] MEDS ORDERED: HYDROcodone/APAP 5-325MG 1 EACH TAB PO STA ×2 (14:20→22:04)
[2023-09-25] MEDS ORDERED: NICOTINE 21MG/24HR PATCH TRANSDERM STA (15:04)
[2023-09-25] MEDS ORDERED: GENVOYA PO SCH (17:00)
[2023-09-25] MEDS: ALBUTEROL HFA INHALER INHALATION PRN (18:13)
[2023-09-25 18:26] VITALS: BP 120/76; PULSE 70; TEMP 98.8
== END 2023-09-25 22:35 ==
LOC: EC 12:19
DX: U07.1 COVID-19 (principal); B96.89 Other specified bacterial agents as the cause of diseases classified elsewhere; R45.851 Suicidal ideations; F32.A Depression, unspecified; J44.89 Other specified chronic obstructive pulmonary disease; E78.5 Hyperlipidemia, unspecified; K21.9 Gastro-esophageal reflux disease without esophagitis; M19.90 Unspecified osteoarthritis, unspecified site; Z86.73 Personal history of transient ischemic attack (TIA), and cerebral infarction without residual deficits; Z86.718 Personal history of other venous thrombosis and embolism; F41.9 Anxiety disorder, unspecified; F17.200 Nicotine dependence, unspecified, uncomplicated; F12.90 Cannabis use, unspecified, uncomplicated; Z88.5 Allergy status to narcotic agent; Z88.8 Allergy status to other drugs, medicaments and biological substances; Z79.01 Long term (current) use of anticoagulants; Z79.02 Long term (current) use of antithrombotics/antiplatelets; Z79.51 Long term (current) use of inhaled steroids; Z79.899 Other long term (current) drug therapy
CPT/HCPCS: 82075; 36415; 94640; 93005; 80053; 86360; 84443; 85025; 81001 ×2; 80306 ×2; 87086; 87635; 99285; 96372; S4990 ×2; J2060

== ENCOUNTER → 2024-07-09 | Outpatient (CLI) | payer OTHER ==
--- NOTE | 2024-07-09 09:32 | US ---
EXAMINATION TYPE: US Aorta Screening DATE OF EXAM: 07/09/2024 COMPARISON: CT 2022 CLINICAL INDICATION: Male, 64 years old with history of F17.0 NICOTINE DEPENDENCE, UNSPECIFIED, UNCOM PLICA; TECHNIQUE: Multiple sonographic images of the abdominal aorta are obtained with grayscale and color D oppler imaging. with grayscale and color Doppler imaging FINDINGS: EXAM MEASUREMENTS: Abdominal Aorta: Proximal: 2.3 x 2.1cm Mid: 2.3 x 1.9cm Distal: 1.9 x 2.0cm Bifurcation: Right Iliac: 1.1 x 0.9cm Left Iliac: 1.1 x 0.8cm Atherosclerotic changes IMPRESSION: No evidence for aortic aneurysm. [facility], , 07/09/2024 9:30 AM
== END | disposition home or self-care (01) ==
LOC: RADUSWWP 08:57
PROVIDERS: ATTEND Internal Medicine Hospice and Palliative Medicine
CPT/HCPCS: 76706

== ENCOUNTER → 2024-07-20 | Outpatient (CLI) | payer OTHER ==
--- NOTE | 2024-07-20 13:55 | CTL ---
EXAMINATION TYPE: CT Low Dose Lung DATE OF EXAM ORDERED: 07/20/2024 HISTORY: Nicotine dependence, current smoker, 56 pack-year history. Lung cancer screening CT DLP: 78.[address] CTDI: 2.10 mGy Automated exposure control for dose reduction was used. SCREENING VISIT: Second screening visit COMPARISON: CT Low Dose Lung 08/06/2019 TECHNIQUE: Low dose computed tomography scan was performed through the chest at 1 mm thick sections a nd reconstructed images in multiple planes at 1 mm and [address] DIAGNOSTIC QUALITY: Satisfactory FINDINGS: Nodules: Stable right upper lobe 2.4 mm calcified granuloma (series 6, image 13). Stable anterior left upper lobe 2.5 mm pulmonary nodule (series 6, image 29). New pleural-based left lower lobe medially 7 mm pulmonary nodule (series 6, image 34). Stable 4.3 mm pulmonary nodule within the right middle lobe (series 6, image 43). LUNGS: COPD: Severity: Minimal Fibrosis: Severity: None Lymph nodes: None Other findings: Development of right apical pleural-parenchymal reticular opacity without focal nodul e identified. RIGHT PLEURAL SPACE: Effusion: None Calcification: None Thickening: None Pneumothorax: None LEFT PLEURAL SPACE: Effusion: None Calcification: None Thickening: None Pneumothorax: None HEART: Heart Size: Normal Coronary Calcification: None Pericardial Effusion: Small anteriorly OTHER FINDINGS: Upper abdomen: None Bony thorax: Mild multilevel degenerative disc disease. Supraclavicular region: None Other: Mild bilateral gynecomastia. IMPRESSION: 1. Stable 2 pulmonary nodules with new left lower lobe 7 mm peripheral nodular density. 2. Development of right apical pleural-parenchymal reticular opacity without focal nodule identified . Attention on follow-up exam. CT LUNG RAD AND CT CHEST RECOMMENDATION: Lung-Rad 4A Suspicious: Follow-up 3 month LDCT or PET/CT may be used when there is a > 8 mm solid component. S Modifier (other clinically significant findings): None [facility], , 07/20/2024 1:52 PM
== END | disposition home or self-care (01) ==
LOC: RADCTMAIN 11:00
PROVIDERS: ATTEND Internal Medicine Hospice and Palliative Medicine
CPT/HCPCS: 71271

== ENCOUNTER → 2024-08-02 | Day surgery (SDC) | payer OTHER ==
[2024-08-02 15:47] VITALS: BP 106/70; PULSE 88; RESP 16
[2024-08-02 16:30] VITALS: TEMP 98.3
== END ==
LOC: CATHCVL 15:20
PROVIDERS: ATTEND Nurse Practitioner Family
DX: N45.2 Orchitis (principal); Z88.8 Allergy status to other drugs, medicaments and biological substances; Z88.5 Allergy status to narcotic agent
CPT/HCPCS: 36410; 76937; C1751

== ENCOUNTER 2024-09-15 08:52 | Day surgery (SDC) | payer OTHER ==
[~2024-09-15 08:52] MED LIST changes: -ALPRAZolam 0.25 MG TAB PO PRN; -ALPRAZolam 0.5 MG TAB PO PRN; -ASPIRIN 325 MG TAB PO STA; +LACTATED RINGERS 1,000 ML IV SCH; +LIDOCAINE 1% (10MG/ML) FOR IV START INTRADERMA PRN; -SODIUM CHLORIDE 0.9% 1,000 ML in EMPTY BAG 1 BAG IV ONE; -ZOLPIDEM 5 MG TAB PO PRN
[2024-09-15] MEDS: IV FLUID CONTINUATION 1,000 ML IV ONE (09:32)
[2024-09-15 09:59] VITALS: RESP 18; TEMP 99.2
[2024-09-15] MEDS: LACTATED RINGERS 1,000 ML IV SCH (10:00)
[2024-09-15] MEDS ORDERED: PROPOFOL 10 MG/ML 20 ML VIAL IV ONE (10:34)
--- NOTE | 2024-09-15 10:51 | P.PCN ---
Date of Procedure: 09/15/24 Procedure(s) Performed: BRIEF HISTORY: Patient is a 64-year-old pleasant white male scheduled for an elective colonoscopy as a part of screening for colon cancer. PROCEDURE PERFORMED: Colonoscopy with cold biopsy. PREOPERATIVE DIAGNOSIS: Screening for for colon cancer. IV sedation per Anesthesia. PROCEDURE: After informed consent was obtained, the patient, was brought into the endoscopy unit. IV sedation was administered by Anesthesia under continuous monitoring. Digital rectal examination was normal. Initially the Olympus CF-160 flexible video colonoscope was then inserted in the rectum, gradually advanced into the cecum without any difficulty. Careful examination was performed as the scope was gradually being withdrawn. Ileocecal valve and the appendiceal orifice were visualized and appeared normal. Prep was fair. Mucosa of the cecum normal. Descending colon there was a 3 mm sessile polyp removed by cold biopsy. Rest of the, ascending colon, transverse colon, descending colon, sigmoid colon, and rectum appeared normal. Retroflexion was performed in the rectum and no lesions were seen. The patient tolerated the procedure well. IMPRESSION: 3 mm ascending colon polyp status post cold biopsy Rest of the colon appeared normal RECOMMENDATIONS: Findings of this examination were discussed with the patient as well as his family. He was advised to follow with the biopsy results and have repeat colonoscopy in 10 years..
[2024-09-15 11:14] VITALS: BP 111/71; PULSE 55
== END 2024-09-15 11:35 | disposition home or self-care (01) ==
LOC: ORWHC2ENDO 08:52
PROVIDERS: ATTEND Internal Medicine Gastroenterology
DX: Z12.11 Encounter for screening for malignant neoplasm of colon (principal); D12.2 Benign neoplasm of ascending colon; K21.9 Gastro-esophageal reflux disease without esophagitis; E78.5 Hyperlipidemia, unspecified; J44.9 Chronic obstructive pulmonary disease, unspecified; I82.409 Acute embolism and thrombosis of unspecified deep veins of unspecified lower extremity; I73.9 Peripheral vascular disease, unspecified; I67.9 Cerebrovascular disease, unspecified; M19.90 Unspecified osteoarthritis, unspecified site; F32.A Depression, unspecified; F41.9 Anxiety disorder, unspecified; G40.509 Epileptic seizures related to external causes, not intractable, without status epilepticus; F43.10 Post-traumatic stress disorder, unspecified; U07.0 Vaping-related disorder; Z83.0 Family history of human immunodeficiency virus [HIV] disease; Z79.51 Long term (current) use of inhaled steroids; Z88.5 Allergy status to narcotic agent; Z79.899 Other long term (current) drug therapy
CPT/HCPCS: 45380; J2704; 88305

== ENCOUNTER → 2024-09-16 | Outpatient (CLI) | payer OTHER | END | disposition home or self-care (01) | LOC: RADPETMAIN 11:10 | PROVIDERS: ATTEND Internal Medicine Hospice and Palliative Medicine | DX: Z53.9 Procedure and treatment not carried out, unspecified reason (principal) ==

== ENCOUNTER → 2024-10-07 | Outpatient (CLI) | payer OTHER ==
--- NOTE | 2024-10-08 10:19 | PE ---
EXAMINATION TYPE: PET CT fusion skull to thigh DATE OF EXAM: 10/07/2024 COMPARISON: Low-dose lung screening CT July 20, 2024 and older CTs HISTORY: Solitary pulmonary nodule TECHNIQUE: Following the intravenous administration of 11.57 mCi of F-18 FDG, whole body images are performed from the skull base to the midthigh. Images are reviewed on the computer in the coronal, a xial, and sagittal planes. Reconstructed rotating images are created on independent workstation and reviewed on the computer. A localization and attenuation correction CT is performed in conjunction with the PET scan. Blood glucose level = 100 SCAN: Initial Scan FINDINGS: SKULL BASE AND NECK: No areas of abnormal hypermetabolic uptake. CHEST, MEDIASTINUM, AND HILAR REGION: Mild emphysematous change is redemonstrated with stable right a pical linear scarring. No abnormal hypermetabolic uptake in the thorax. Stable 7 mm pleural-based nod ule or nodular consolidation axial image 83. ABDOMEN AND PELVIS: Normal excretion. Johnson catheter bladder is present. No abnormal hypermetabolic u ptake. No hypermetabolic adrenal masses. OSSEOUS STRUCTURES: No abnormal hypermetabolic uptake. OTHER CT: Small degree of bilateral subareolar gynecomastia is redemonstrated. Mild coronary artery c alcification is redemonstrated along with tiny inferior pericardial effusion. There is persistent lar ge calcifications in the bladder and enlarged prostate consistent with BPH. There is persistent left external iliac stent left groin region. IMPRESSION: No areas of abnormal hypermetabolic uptake to suggest malignancy. A follow-up low-dose lung screening CT in 3 months time is advised to reassess. [facility], , 10/08/2024 10:16 AM
== END | disposition home or self-care (01) ==
LOC: RADPETMAIN 09:10
PROVIDERS: ATTEND Internal Medicine Hospice and Palliative Medicine
DX: Z12.2 Encounter for screening for malignant neoplasm of respiratory organs (principal); F17.200 Nicotine dependence, unspecified, uncomplicated
CPT/HCPCS: 78815; A9552

== ENCOUNTER → 2024-11-02 | Outpatient (CLI) | payer OTHER ==
--- NOTE | 2024-11-02 16:05 | US ---
EXAMINATION TYPE: US scrotum with doppler. DATE OF EXAM: 11/02/2024 COMPARISON: NONE CLINICAL INDICATION: Male, 64 years old with history of N45.4 ABSCESS OF EPIDIDYMIS OR TESTIS; Recurr ent UTIs TECHNIQUE: Grayscale, color Doppler and spectral Doppler imaging of the scrotum. FINDINGS: EXAM MEASUREMENTS: TESTICLES: Right Testicle: 3.5 x 2.7 x 3.1 cm Left Testicle: 4.86 x 1.9 x 2.7 cm EPIDIDYMIS HEAD: Right Epididymis: 0.8 cm Left Epididymis: 1.2 cm Doppler performed to assess for testicular vascularity; good bilateral color flow and spectral wavefo delio are seen. There is no evidence of testicular torsion. Mild increased color Doppler flow within the right epididymis. Presence of hydroceles: No Presence of varicoceles: No exam limited by catheter placement, patient positioning, anatomical positioning. No organizing fluid collection definitively visualized. IMPRESSION: 1. Mildly increased color Doppler flow within the right peritesticular tissues which can be seen in setting of infection. No evidence for organizing fluid collection. 2. No evidence for intratesticular mass. 3. Appropriate arterial and venous spectral waveforms to the testes. [facility], , 11/02/2024 4:02 PM
== END | disposition home or self-care (01) ==
LOC: RADUSWWP 14:10
PROVIDERS: ATTEND Internal Medicine Hospice and Palliative Medicine
DX: N45.4 Abscess of epididymis or testis (principal); Z87.440 Personal history of urinary (tract) infections
CPT/HCPCS: 76870; 93975

== ENCOUNTER → 2025-01-21 | Outpatient (CLI) | payer OTHER ==
--- NOTE | 2025-01-21 13:32 | CTL ---
EXAMINATION TYPE: CT Low Dose Lung DATE OF EXAM: 01/21/2025 1:07 PM COMPARISON: 07/20/2024. CLINICAL INDICATION: Male, 64 years old with history of R91.8 OTHER NONSPECIFIC ABNORMAL FINDING OF L JAZMÍN F; personal tobacco use, history of tobacco use. TECHNIQUE: Multiple axial non-contrast scans were obtained from approximately the lung apices through the upper abdomen. Coronal and sagittal reformatted images were obtained. Low dose technique was uti lized. MIP were created on a separate workstation and submitted for review. CT DLP: 67.9 mGycm, Automated exposure control for dose reduction was used. CT Contrast: Contrast used: None Oral contrast used: None FINDINGS: Lack of intravenous contrast and low dose technique limits the evaluation of the vascular and soft ti ssue structures. LUNGS: No evidence of pulmonary fibrosis. No evidence of focal consolidation, pneumothorax or pleural effusion. Centrilobular emphysema changes. Nodules: RUL: Calcified granuloma series 3 image 64, right upper lobe parenchymal is stable. Scarring/dist ortion series 3 image 56.. RML: 3 mm nodule series 3 image 2 7 stable. Intrafissural lymph node along the major fissure seri es 3 image 199 and stable.. RLL: None. SEDA: 3 mm series 3 image 127. LLL: Medial subpleural nodule on pleura measuring 9 mm previously 7 mm series 3 image 178. 4 mm s eries 3 image 255r AIRWAY: Patent and unremarkable. HEART: Size within normal limits. No significant coronary artery calcifications. MEDIASTINUM: No gross evidence of adenopathy. VASCULATURE: Atherosclerotic calcifications are present throughout the aorta and its branches. MUSCULOSKELETAL: Moderate disc degeneration changes are present throughout the thoracolumbar spine. SOFT TISSUES/LYMPH NODES: Mild gynecomastia changes bilaterally. LOWER NECK: No significant findings. UPPER ABDOMEN: No significant findings. IMPRESSION: 1. Left lower lobe medial pulmonary nodule mildly increased in size from 07/20/2024 did not have incr eased FDG activity on pet/CT on 10/07/2024. Findings favor benign granulomatous change. This is seen da ting back to 08/06/2019. Additional pulmonary nodules are stable and/or not clinically significant at this time.. 2. Moderate emphysema. CT LUNG RAD AND CT CHEST RECOMMENDATION: Lung-Rad 2 Benign Appearance or Behavior: Continue annual sc reening with LDCT in 12 months. S Modifier (other clinically significant findings): None Recommend smoking cessation (if current smoker), or continuation of smoking cessation (if prior smoke r). Annual screening for lung cancer with low-dose computed tomography is recommended in adults ages 55 to 77 years who have a 30 pack-year smoking history and currently smoke or have quit within the pa st 15 years. Screening should be discontinued once a person has not smoked for 15 years or develops a health problem that substantially limits life expectancy or the ability or willingness to have curat bernardo lung surgery. Lung rads 2021 [email or web address] [email or web address], , 01/21/2025 1:29 PM
== END | disposition home or self-care (01) ==
LOC: RADCTMAIN 12:20
PROVIDERS: ATTEND Internal Medicine Hospice and Palliative Medicine
DX: Z12.2 Encounter for screening for malignant neoplasm of respiratory organs (principal); R91.8 Other nonspecific abnormal finding of lung field; F17.210 Nicotine dependence, cigarettes, uncomplicated; J43.2 Centrilobular emphysema
CPT/HCPCS: 71271